=== PATIENT | female | born 1945 | race Caucasian/White ===

== ENCOUNTER 2016-10-07 07:36 | Inpatient (IN) ==
[2016-10-07] MEDS ORDERED: DUONEB NEB ONE (07:50)
[2016-10-07] MEDS ORDERED: DUONEB NEB STA (07:59)
--- NOTE | 2016-10-07 08:00 | ED.PDOC ---
General ED Provider: Dr. GENESIS MOYA JR Chief Complaint: Respiratory Complaint Stated Complaint: patient c/o soa. nh states o2 sat 85% room air[End]4 days 96.7 83 22 99% 194/88 11/30 DNR amalia vaca Time Seen by Physician: 07:59 Mode of Arrival: Ambulance Information Source: Patient, Intermediate, EMT Exam Limitations: No limitations Primary Care Provider: TORSTEN TORRES Nursing and Triage Documentation Reviewed and Agree: No Review of Systems - Review Of Systems Constitutional: Reports: Malaise Eyes: Reports: No symptoms Ears, Nose, Mouth, Throat: Reports: No symptoms Respiratory: Reports: Cough, Wheezing, Other (COPD) Cardiac: Reports: Chest pain (mid sternal chest pain-unable to characterize) GI: Reports: Diarrhea : Reports: No symptoms Musculoskeletal: Reports: No symptoms Skin: Reports: No symptoms Neurological: Reports: Cognitive dysfunction Endocrine: Reports: No symptoms Hematologic/Lymphatic: Reports: No symptoms All Other Systems: Other Past Medical History - Past Medical History Previously Healthy: Yes Endocrine: Reports: DM 2, Dyslipidemia Cardiovascular: Reports: Hypertension, Other (Edema) Respiratory: Reports: None Hematological: Reports: None Gastrointestinal: Reports: GERD, Other (IBS) Genitourinary: Reports: None Neuro/Psych: Reports: None, Other ( Neuropathy ) Musculoskeletal: Reports: None Cancer: Reports: None Last Menstrual Period: na Other Pertinent Past Medical History: Recent Falls, IBS, Edema, Neuropathy htn dm chol - Surgical History General Surgical History: Reports: Cholecystectomy (Gallbladder removed, unable to get surgical history) - Family History Family History: Reports: None - Social History Smoking Status: Former smoker Hx Substance Use: No Alcohol Screening: None Physical Exam - Physical Exam Appearance: Well-appearing, Obese Ill-appearing: Mild Pain Distress: Mild Eyes: PABLO, EOMI, Conjunctiva clear ENT: Ears normal, Nose normal, Oropharynx normal Neck: Supple Respiratory: Airway patent, Breath sounds diminished Cardiovascular: RRR, Pulses normal, No rub, No murmur Skin: Warm, Dry, Normal color (note punctate lesions purplish both shoulders r> > left appearance of punctures POA states look like fingernail lesions patietn unreliable(dementia)) Neurological: Sensation intact, Alert, Disoriented Psychiatric: Affect appropriate, Mood appropriate Interpretation - Radiology Interpretation Radiology Interpretation By: Radiologist Radiology Results: No acute changes Exam Interpreted: CXR (no right hilar pneumonia=calcified granulomatous changes) , Other (neg shoulder (rotator cuff calcification) Radiology Interpretation By: Radiologist Radiology Results: No acute changes Exam Interpreted: CT Scan (chf,cirrosis,gastritis,diverticulitis, no PE) - EKG Interpretation Time of EKG #1: 07:45 Rate: Normal Rhythm: Sinus [place]: Left ST Segment: Other (?lvh ?infmi nonacute) Physician Notification - Case Discussed Physician Notified: [email or web address] Time of Notification: 16:27 (admit) Critical Care Note - Critical Care Note Total Time (mins): 10 Course - Course Hematology/Chemistry: 10/07/16 08:20 10/07/16 08:20 Orders, Labs, Meds: Lab Review 10/07/16 10/07/16 10/07/16 07:52 08:20 09:45 WBC 11.59 H RBC 4.19 L Hgb 12.9 Hct 38.3 MCV 91.4 MCH 30.8 MCHC 33.7 RDW Coeff of Dinah 14.7 Plt Count 91 L Immature Gran % (Auto) 0.4 Neut % (Auto) 82.7 Lymph % (Auto) 8.3 L [place] % (Auto) 6.6 Eos % (Auto) 1.6 Baso % (Auto) 0.4 Immature Gran # (Auto) 0.1 Neut # 9.6 H Lymph # 1.0 [place] # 0.8 Eos # 0.2 Baso # 0.1 D-Dimer 9.88 H Puncture Site L brach O2 Saturation 90.0 L ABG pH 7.47 H ABG pCO2 38.5 ABG pO2 55.0 L* ABG HCO3 28 H ABG Total CO2 29 H ABG Base Excess 4 H Gibran Test + FiO2 % 21.0 Sodium 140 Potassium 4.2 Chloride 104 Carbon Dioxide 26 Anion Gap 14.2 BUN 22 H Creatinine 0.96 Estimated GFR (MDRD) 57.00 BUN/Creatinine Ratio 22.91 Glucose 117 H Lactic Acid 11.9 Calcium 9.6 Total Bilirubin 2.28 H AST 54 H ALT 32 Alkaline Phosphatase 390 H Total Creatine Kinase 39 Troponin I 0.0710 B-Natriuretic Peptide 803 H Total Protein 7.5 Albumin 2.8 L Globulin 4.7 Albumin/Globulin Ratio 0.60 Procalcitonin 0.18 Stl Occult Blood (IFOB) Positive Stool Occult Blood #2 No specimen received Stool Occult Blood #3 No specimen received Orders Category Date Time Status ADMIT PATIENT INPATIENT .TO [facility] [place] (MONITORED BED) ADMISSION 10/07/16 16: 28 Active ABG DRAW REQUEST Stat CARDIO 10/07/16 07:53 Completed EKG-(ED ONLY) Stat CARDIO 10/07/16 07:52 Completed EKG-(IP & OP ONLY) DAILY CARDIO 10/08/16 06:00 Ordered EKG-(IP & OP ONLY) DAILY CARDIO 10/09/16 06:00 Ordered EKG-(IP & OP ONLY) DAILY CARDIO 10/10/16 06:00 Ordered NEBULIZER TREATMENT Stat CARDIO 10/07/16 07:59 Completed ACTIVITY .BR with BRP CARE 10/07/16 16:29 Active BLOOD GLUCOSE MONITORING 0630,1100,1700,2100 CARE 10/07/16 16:30 Active CATHETER INSERTION AND CARE Q8HR CARE 10/07/16 16:29 Active GIVE HS SNACK 2100 CARE 10/07/16 16:31 Active INTAKE & OUTPUT Q8HR CARE 10/07/16 16:28 Active INTAKE & OUTPUT Q8HR CARE 10/07/16 16:29 Active NPO REMINDER: IMAGING ONCE CARE 10/07/16 09:42 Completed NPO REMINDER: IMAGING ONCE CARE 10/07/16 10:34 Active TELEMETRY MONITORING TELE CARE 10/07/16 16:29 Active VITAL SIGNS Q4HR CARE 10/07/16 16:29 Active ADA 1800 KRISSY. DIET DIETARY 10/07/16 Breakfast Ordered CARDIAC DIET DIETARY 10/07/16 Breakfast Ordered HS SNACK DIETARY 10/07/16 Dinner Ordered Bladder Scan [ED BLADDER SCAN] .ONCE EMERGENCY 10/07/16 15:17 Active ED APPLY O2 .ONCE EMERGENCY 10/07/16 07:52 Active ED ADJUNCT SOCIOLOGY PROFESSOR APPLIED .ONCE EMERGENCY 10/07/16 07:52 Active ED IV/MEDIPORT/POWERPORT .ONCE EMERGENCY 10/07/16 07:52 Active Douglas [ED CATHETER INSERTION AND CARE] .ONCE EMERGENCY 10/07/16 16:28 Active ABG Stat LAB 10/07/16 07:52 Completed AMMONIA Stat LAB 10/07/16 16:27 Received B-TYPE NATRIURETIC PEPTIDE Stat LAB 10/07/16 08:20 Completed BLOOD CULTURE Stat LAB 10/07/16 08:20 Received CBC W/ AUTO DIFF DAILY@0600 LAB 10/08/16 06:00 Ordered CBC W/ AUTO DIFF DAILY@0600 LAB 10/09/16 06:00 Ordered CBC W/ AUTO DIFF DAILY@0600 LAB 10/10/16 06:00 Ordered CBC W/ AUTO DIFF DAILY@0600 LAB 10/11/16 06:00 Ordered CBC W/ AUTO DIFF DAILY@0600 LAB 10/12/16 06:00 Ordered CBC W/ AUTO DIFF DAILY@0600 LAB 10/13/16 06:00 Ordered CBC W/ AUTO DIFF DAILY@0600 LAB 10/14/16 06:00 Ordered CBC W/ AUTO DIFF DAILY@0600 LAB 10/15/16 06:00 Ordered CBC W/ AUTO DIFF DAILY@0600 LAB 10/16/16 06:00 Ordered CBC W/ AUTO DIFF DAILY@0600 LAB 10/17/16 06:00 Ordered CBC W/ AUTO DIFF DAILY@0600 LAB 10/18/16 06:00 Ordered CBC W/ AUTO DIFF DAILY@0600 LAB 10/19/16 06:00 Ordered CBC W/ AUTO DIFF DAILY@0600 LAB 10/20/16 06:00 Ordered CBC W/ AUTO DIFF DAILY@0600 LAB 10/21/16 06:00 Ordered CBC W/ AUTO DIFF DAILY@0600 LAB 10/22/16 06:00 Ordered CBC W/ AUTO DIFF DAILY@0600 LAB 10/23/16 06:00 Ordered CBC W/ AUTO DIFF DAILY@0600 LAB 10/24/16 06:00 Ordered CBC W/ AUTO DIFF DAILY@0600 LAB 10/25/16 06:00 Ordered CBC W/ AUTO DIFF DAILY@0600 LAB 10/26/16 06:00 Ordered CBC W/ AUTO DIFF DAILY@0600 LAB 10/27/16 06:00 Ordered CBC W/ AUTO DIFF Stat LAB 10/07/16 08:20 Completed COMPREHENSIVE METABOLIC PANEL DAILY@0600 LAB 10/08/16 06:00 Ordered COMPREHENSIVE METABOLIC PANEL DAILY@0600 LAB 10/09/16 06:00 Ordered COMPREHENSIVE METABOLIC PANEL DAILY@0600 LAB 10/10/16 06:00 Ordered COMPREHENSIVE METABOLIC PANEL DAILY@0600 LAB 10/11/16 06:00 Ordered COMPREHENSIVE METABOLIC PANEL DAILY@0600 LAB 10/12/16 06:00 Ordered COMPREHENSIVE METABOLIC PANEL DAILY@0600 LAB 10/13/16 06:00 Ordered COMPREHENSIVE METABOLIC PANEL DAILY@0600 LAB 10/14/16 06:00 Ordered COMPREHENSIVE METABOLIC PANEL DAILY@0600 LAB 10/15/16 06:00 Ordered COMPREHENSIVE METABOLIC PANEL DAILY@0600 LAB 10/16/16 06:00 Ordered COMPREHENSIVE METABOLIC PANEL DAILY@0600 LAB 10/17/16 06:00 Ordered COMPREHENSIVE METABOLIC PANEL DAILY@0600 LAB 10/18/16 06:00 Ordered COMPREHENSIVE METABOLIC PANEL DAILY@0600 LAB 10/19/16 06:00 Ordered COMPREHENSIVE METABOLIC PANEL DAILY@0600 LAB 10/20/16 06:00 Ordered COMPREHENSIVE METABOLIC PANEL DAILY@0600 LAB 10/21/16 06:00 Ordered COMPREHENSIVE METABOLIC PANEL DAILY@0600 LAB 10/22/16 06:00 Ordered COMPREHENSIVE METABOLIC PANEL DAILY@0600 LAB 10/23/16 06:00 Ordered COMPREHENSIVE METABOLIC PANEL DAILY@0600 LAB 10/24/16 06:00 Ordered COMPREHENSIVE METABOLIC PANEL DAILY@0600 LAB 10/25/16 06:00 Ordered COMPREHENSIVE METABOLIC PANEL DAILY@0600 LAB 10/26/16 06:00 Ordered COMPREHENSIVE METABOLIC PANEL DAILY@0600 LAB 10/27/16 06:00 Ordered COMPREHENSIVE METABOLIC PANEL Stat LAB 10/07/16 08:20 Completed CREATINE KINASE Q8H LAB 10/07/16 22:45 Ordered CREATINE KINASE Q8H LAB 10/08/16 06:45 Ordered CREATINE KINASE Stat LAB 10/07/16 08:20 Completed D-DIMER Stat LAB 10/07/16 08:20 Completed LACTIC ACID Stat LAB 10/07/16 08:20 Completed OCCULT BLOOD, STOOL Stat LAB 10/07/16 09:45 Completed PROCALCITONIN Stat LAB 10/07/16 08:20 Completed PT WITH INR DAILY@0600 LAB 10/07/16 06:00 Ordered PT WITH INR DAILY@0600 LAB 10/08/16 06:00 Ordered PT WITH INR DAILY@0600 LAB 10/09/16 06:00 Ordered PT WITH INR DAILY@0600 LAB 10/10/16 06:00 Ordered PT WITH INR DAILY@0600 LAB 10/11/16 06:00 Ordered PT WITH INR DAILY@0600 LAB 10/12/16 06:00 Ordered PT WITH INR DAILY@0600 LAB 10/13/16 06:00 Ordered PT WITH INR DAILY@0600 LAB 10/14/16 06:00 Ordered PT WITH INR DAILY@0600 LAB 10/15/16 06:00 Ordered PT WITH INR DAILY@0600 LAB 10/16/16 06:00 Ordered PT WITH INR DAILY@0600 LAB 10/17/16 06:00 Ordered PT WITH INR DAILY@0600 LAB 10/18/16 06:00 Ordered PT WITH INR DAILY@0600 LAB 10/19/16 06:00 Ordered PT WITH INR DAILY@0600 LAB 10/20/16 06:00 Ordered PT WITH INR DAILY@0600 LAB 10/21/16 06:00 Ordered PT WITH INR DAILY@0600 LAB 10/22/16 06:00 Ordered PT WITH INR DAILY@0600 LAB 10/23/16 06:00 Ordered PT WITH INR DAILY@0600 LAB 10/24/16 06:00 Ordered PT WITH INR DAILY@0600 LAB 10/25/16 06:00 Ordered PT WITH INR DAILY@0600 LAB 10/26/16 06:00 Ordered PT WITH INR DAILY@0600 LAB 10/27/16 06:00 Ordered STOOL CULTURE Stat LAB 10/07/16 Ordered TROPONIN I Q8H LAB 10/07/16 22:45 Ordered TROPONIN I Q8H LAB 10/08/16 06:45 Ordered TROPONIN I Stat LAB 10/07/16 08:20 Completed URINALYSIS C & S IF INDICATED Stat LAB 10/07/16 16:37 Uncollected 0.9 % Sodium Chloride [Saline Flush] MEDS 10/07/16 07:52 Active 1 syr IVF PRN PRN Ceftriaxone Sodium [Rocephin] MEDS 10/07/16 10:21 Discontinued 1 gm .ROUTE .STK-MED ONE Ceftriaxone Sodium [Rocephin] 1 gm MEDS 10/07/16 09:01 Discontinued 0.9 % Sodium Chloride [Sodium Chloride] 100 ml IV ONCE Furosemide [Lasix] MEDS 10/07/16 15:15 Discontinued 40 mg IVP ONCE STA Ipratropium/Albuterol Neb [Duoneb] MEDS 10/07/16 07:50 Discontinued 1 vial NEB .STK-MED ONE Ipratropium/Albuterol Neb [Duoneb] MEDS 10/07/16 07:59 Discontinued 1 vial NEB ONCE STA Lidocaine HCl [Uro-Jet] MEDS 10/07/16 16:28 Discontinued 10 ml MUCOUSMEMB ONCE STA Methylprednisolone Sod Succ/Pf [Solu-Medrol 125 mg] MEDS 10/07/16 09:01 Discontinued 125 mg IVP ONCE STA Sodium Chloride 0.9% [Sodium Chloride] 1,000 ml MEDS 10/07/16 16:30 Active IV 75 mls/hr Sodium Chloride 0.9% [Sodium Chloride] 500 ml MEDS 10/07/16 10:38 Discontinued IV BOLUS RESUSCITATION STATUS Routine OTHERS 10/07/16 16:28 Ordered CHEST, 1V AP ONLY Stat RADS 10/07/16 07:[address] ABDOMEN/PELVIS W CONTRAST Stat RADS 10/07/16 10:[address] CHEST PE PROTOCOL Stat RADS 10/07/16 09:41 Completed HUMERUS, RIGHT 2 VIEWS Stat RADS 10/07/16 11:14 Completed Medications Generic Name Dose Route Start Last Admin Trade Name Freq PRN Reason Stop Dose Admin Sodium Chloride 1,000 mls @ 75 mls/hr 10/07/16 16:30 Sodium Chloride IV .[id number] JASON Sodium Chloride 1 syr 10/07/16 07:52 Saline Flush IVF PRN PRN To flush IV Discontinued Medications Generic Name Dose Route Start Last Admin Trade Name Freq PRN Reason Stop Dose Admin Albuterol/Ipratropium 1 vial 10/07/16 07:59 10/07/16 08:08 Duoneb NEB 10/07/16 08:00 Not Given ONCE STA Furosemide 40 mg 10/07/16 15:15 10/07/16 16:32 Lasix IVP 10/07/16 15:16 40 mg ONCE STA Administration Ceftriaxone Sodium 1 gm/ 100 mls @ 100 mls/hr 10/07/16 09:01 10/07/16 10:45 Sodium Chloride IV 10/07/16 10:00 100 mls/hr ONCE STA Administration Sodium Chloride 500 mls @ 1,000 mls/hr 10/07/16 10:38 10/07/16 11:13 Sodium Chloride IV 10/07/16 11:07 1,000 mls/hr BOLUS STA Administration Lidocaine HCl 10 ml 10/07/16 16:28 Uro-Jet MUCOUSMEMB 10/07/16 16:29 ONCE STA Methylprednisolone Sodium Succinate 125 mg 10/07/16 09:01 10/07/16 10:44 Solu-Medrol 125 Mg IVP 10/07/16 09:02 125 mg ONCE STA Administration Vital Signs: Temp Pulse Resp BP Pulse Ox 10/07/16 07:37 96.7 F L 83 22 194/88 H 99 Departure - Departure Time of Disposition: 16:35 Disposition: ADMITTED INPATIENT Discharge Problem: Hypoxia, CHF (congestive heart failure) Condition: Fair Pt referred to PMD for follow-up: No (hospitalist) Allergies/Adverse Reactions: Allergies Cephalosporins Adverse Reaction (Verified 10/07/16 07:57) phenobarbital Adverse Reaction (Verified 10/07/16 07:57) povidone-iodine Adverse Reaction (Verified 10/07/16 07:57) soap [From Betadine] Adverse Reaction (Verified 10/07/16 07:57) Home Medications: Ambulatory Orders Furosemide [Lasix Tab] 40 mg PO DAILY 01/03/15 Isosorbide Dinitrate 30 mg PO DAILY 01/03/15 Memantine HCl [Namenda Xr] 28 mg PO DAILY 01/03/15 Acetaminophen [Tylenol] 650 mg PO Q8H PRN 05/16/16 Ascorbate Calcium [Vitamin C] 500 mg PO BID 05/16/16 Carvedilol 3.125 mg PO BID 05/16/16 Dextran 70/Hypromellose/Pf [Artificial Tears Drops] 1 each OP BEDTIME 05/16/16 Esomeprazole Magnesium [Nexium] 20 mg PO DAILY 05/16/16 Ferrous Sulfate 325 mg PO BID 05/16/16 Hydrocodone/Acetaminophen [Hydrocodon-Acetaminophen 5-325] 5 mg PO TID 05/16/16 Insulin Aspart [Novolog Flexpen] 1 unit SQ DIRECTED PRN 05/16/16 Insulin Detemir [Levemir] 40 unit SUBCUT QAM 05/16/16 Liraglutide [Victoza 2-Anthony] 0.3 mg SQ DAILY 05/16/16 Loperamide HCl [Imodium] 2 mg PO DAILY PRN 05/16/16 Multivitamin with Minerals [Daily Vitamin Formula-Minerals] 1 each PO DAILY Nystatin [Nystop Powder] 1 applic TP TID 05/16/16 Pregabalin [Lyrica] 25 mg PO Q12HR 05/16/16 Sertraline HCl 25 mg PO BEDTIME 05/16/16 Spironolactone 25 mg PO BID 05/16/16 Bisacodyl [Women's Laxative] 5 mg PO DAILY PRN 10/07/16 Insulin Detemir [Levemir] 30 unit SUBCUT BEDTIME 10/07/16 Mag Hydrox/Al Hydrox/Simeth [Mylanta Susp] 30 ml PO Q3HR PRN 10/07/16 Zinc Oxide 30 gm TP BID PRN 10/07/16
[2016-10-07 08:02] LABS: ABG BASE EXCESS 4 (-2.0-2.0); ABG PCO2 38.5 mmHg (35-45); ABG PH 7.47 (7.35-7.45)
[2016-10-07 08:03] LABS: ABG HCO3 28 (22.0-26.0); ABG TCO2 29 (22.0-28.0)
--- NOTE | 2016-10-07 08:50 | DI ---
EXAM: Chest one view, frontal view only. HISTORY: Chest pain. COMPARISON: 05/17/2016. FINDINGS: The heart size is enlarged. Atherosclerotic calcifications are present. There is no pul monary vascular congestion. The lungs are clear save for calcified granulomatous changes. No pleur al effusion or pneumothorax is seen. No acute osseous abnormality is identified. Since the prior s tudy, there has been no significant interval change. IMPRESSION: No acute cardiopulmonary process.
[2016-10-07 08:53] LABS: BASOPHILS # (AUTO) 0.1 K/uL (0-0.2); BASOPHILS % (AUTO) 0.4 % (0.0-3.0); EOSINOPHILS # (AUTO) 0.2 K/ul (0.0-0.7); EOSINOPHILS % (AUTO) 1.6 % (0.0-7.0); HEMATOCRIT 38.3 % (37.0-47.0); HEMOGLOBIN 12.9 g/dl (12.0-16.0); IMMATURE GRANULOCYTE % (AUTO) 0.4 % (0.0-5.0); LYMPHOCYTES % (AUTO) 8.3 (10.0-50.0); MEAN CORPUSCULAR HEMOGLOBIN 30.8 pg (27.0-31.0); MEAN CORPUSCULAR HGB CONC 33.7 (31.8-35.4); MEAN CORPUSCULAR VOLUME 91.4 fl (81.0-99.0); MONOCYTES # (AUTO) 0.8 K/uL (0.4-2.0); MONOCYTES % (AUTO) 6.6 (0-10); NEUTROPHILS # (AUTO) 9.6 K/ul (2.0-6.9); NEUTROPHILS % (AUTO) 82.7; PLATELET COUNT 91 10^3/uL (140-440); RED BLOOD COUNT 4.19 10^6/ul (4.20-5.40); WHITE BLOOD COUNT 11.59 K/ul (4.6-10.2)
[2016-10-07 09:01] LABS: ALBUMIN 2.8 g/dL (3.4-5.0); ALBUMIN/GLOBULIN RATIO 0.6; ANION GAP 14.2; BILIRUBIN,TOTAL 2.28 mg/dL (0.00-1.20); BUN/CREATININE RATIO 22.91; CALCIUM 9.6 mg/dL (8.2-10.2); CREATININE 0.96 mg/dL (0.60-1.30); POTASSIUM 4.2 mmol/L (3.5-5.10); TOTAL PROTEIN 7.5 g/dL (5.8-8.1); TROPONIN I 0.071 ng/ml (0.0000-0.4000)
[2016-10-07] MEDS ORDERED: ROCEPHIN 1 GM in SODIUM CHLORIDE 100 ML IV STA (09:01)
[2016-10-07] MEDS ORDERED: SOLU-MEDROL 125 MG IVP STA (09:01)
[2016-10-07 10:12] LABS: OCCULT BLOOD INTERNAL QC 1 INTERNAL QC VALID; OCCULT BLOOD SAMPLE 1 POSITIVE (NEGATIVE)
[2016-10-07 10:14] LABS: OCCULT BLOOD INTERNAL QC 2 INTERNAL QC VALID; OCCULT BLOOD INTERNAL QC 3 INTERNAL QC VALID; OCCULT BLOOD SAMPLE 2 NO SPECIMEN RECEIVED (NEGATIVE); OCCULT BLOOD SAMPLE 3 NO SPECIMEN RECEIVED (NEGATIVE)
[2016-10-07] MEDS ORDERED: ROCEPHIN ONE (10:21)
[2016-10-07] MEDS ORDERED: SODIUM CHLORIDE 500 ML IV STA (10:38)
--- NOTE | 2016-10-07 11:42 | DI ---
EXAM: Radiographs, right humerus HISTORY: Right arm tenderness. COMPARISON: None available. TECHNIQUE: Two views. FINDINGS: Bone mineralization is decreased. There is no fracture or dislocation. Moderate degener ative change of the shoulder noted along with calcific tendinosis of the rotator cuff. Elbow joint appears intact. No focal soft tissue abnormality is seen. IMPRESSION: No fracture or dislocation.
--- NOTE | 2016-10-07 14:22 | CT ---
EXAM: CTA CHEST (PE PROTOCOL) HISTORY: Positive D-dimer, shortness of breath TECHNIQUE: CTA with intravenous contrast. 3-mm axial sections. Coronal and sagittal reformations. 3-D reconstructions. 100 ml Visipaque [id number] FINDINGS: Comparison may be made to 05/17/2016. No pulmonary arterial filling defect is identified. Mild cardiomegaly. Enlarged thyroid gland. Mo derately severe atherosclerotic disease of the aorta. Heavy calcification at the base of the brachi ocephalic artery. Small bilateral pleural effusions are present. Mild pulmonary vascular congestion and probable subt le central interstitial edema. Motion artifact limits image detail. There are mild consolidations adjacent to the pleural fluid, presumably representing atelectasis. No pneumothorax. The bones reveal no acute abnormality. Incidental note of hepatic cirrhosis and mild splenomegaly wi th upper abdominal torturuous vessels probably indicating a degree of portal venous hypertension. IMPRESSION: 1. No pulmonary arterial thromboembolism. 2. Cardiomegaly with pulmonary vascular congestion and mild central interstitial edema. Small bila teral pleural effusions with adjacent atelectasis. 3. Relatively severe atherosclerotic disease. 4. Hepatic cirrhosis with splenomegaly and other signs of portal venous hypertension. 5. Enlarged thyroid gland.
--- NOTE | 2016-10-07 14:31 | CT ---
EXAM: CT of the abdomen pelvis with IV contrast. HISTORY: Abdominal pain COMPARISON: 05/21/2016, 05/16/2016 TECHNIQUE: CT of the abdomen and pelvis with IV contrast FINDINGS: There are small bilateral pleural effusions with mild adjacent atelectasis. There is mild bibasilar interlobular septal thickening. The heart is enlarged. There is calcification of the mitral valve annulus. Patient motion mildly limits evaluation. The liver contour is nodular. The spleen measures 12.3 cm craniocaudal. The gallbladder has been removed. There is stable left renal gland thickening. The r ight adrenal is unremarkable. A 10 mm left renal inferior pole exophytic lesion is seen which is morris ited assessment due to the patient motion. This is likely not a simple cyst. There are a few areas of cortical thinning/scarring of the right kidney. The pancreas is grossly unremarkable. Multiple e sophageal and perigastric varices are present. Numerous prominent varices are seen extending to the left renal vein. There is gastric wall thickening, likely more than just underdistension. No abnormal small bowel dil ation is identified. There is wall thickening of the sigmoid colon which is not well distended. The re is minimal adjacent fat stranding. The appendix is not identified. No pericecal inflammatory jefry nges are seen. There is extensive calcified atherosclerotic plaque of the aorta as branches. No free air is seen. There is mild free fluid adjacent to the liver. There is a small fat-containing left inguinal petty ia. The bladder is underdistended and there is wall thickening. Multiple lower pelvic surgical clips are again seen. There is severe multilevel degenerative disc disease and facet arthropathy. IMPRESSION: Cirrhosis with findings of portal hypertension. Gastric wall thickening, suggestive of gastritis. Diverticulosis. Wall thickening of a segment of the sigmoid colon which is not well distended with minimal adjacent fat stranding. Mild diverticulitis is difficult to exclude. Mild ascites. Bladder wall thickening which could be secondary to the underdistension. Extensive atherosclerosis. Small bilateral pleural effusions, right greater than left with adjacent mild atelectasis. Mild bilateral lower lobe interlobular septal thickening which is nonspecific and often seen with in terstitial edema. Cardiomegaly. Left renal inferior pole lesion, not well evaluated in this exam and likely not a simple cyst. Foll ow-up ultrasound is recommended as a solid lesion is not excluded. Motion degraded exam.
[2016-10-07] MEDS ORDERED: LASIX IVP STA (15:15)
[2016-10-07] MEDS ORDERED: URO-JET MUCOUSMEMB STA (16:28)
[2016-10-07] MEDS ORDERED: SODIUM CHLORIDE 1,000 ML IV SCH (16:30)
[2016-10-07 16:50] LABS: BILIRUBIN,URINE Negative (NEGATIVE); KETONES,URINE 1+ (NEGATIVE); LEUKOCYTE ESTERASE ,URINE Negative (NEGATIVE); NITRITE,URINE Negative (NEGATIVE); PH,URINE 5.5 (5-9); PROTEIN,URINE 3+ (NEGATIVE); URINE, BLOOD 2+ (NEGATIVE)
[2016-10-07 16:54] LABS: ADD URINE MICROSCOPIC YES
[2016-10-07 16:55] LABS: BACTERIA,URINE TRACE (NOT PRESENT)
[2016-10-07] MEDS: DUONEB NEB SCH ×2 (19:25→23:06)
[2016-10-07 21:25] VITALS: BMI 35.1
[2016-10-07] MEDS: LASIX IVP SCH (21:28)
[2016-10-07] MEDS: PROTONIX IV IVP SCH (21:40)
[2016-10-07 23:06] LABS: TROPONIN I 0.112 ng/ml (0.0000-0.4000)
[2016-10-08] MEDS: DUONEB NEB SCH ×4 (04:53→23:04)
[2016-10-08] MEDS: LASIX IVP SCH (05:49)
[2016-10-08 08:04] LABS: BASOPHILS % (AUTO) 0.2 % (0.0-3.0); EOSINOPHILS % (AUTO) 0.2 % (0.0-7.0); HEMATOCRIT 37.1 % (37.0-47.0); HEMOGLOBIN 12.5 g/dl (12.0-16.0); IMMATURE GRANULOCYTE % (AUTO) 1.4 % (0.0-5.0); LYMPHOCYTES # (AUTO) 0.9 K/uL (0.60-3.4); LYMPHOCYTES % (AUTO) 7.2 (10.0-50.0); MEAN CORPUSCULAR HEMOGLOBIN 30.6 pg (27.0-31.0); MEAN CORPUSCULAR HGB CONC 33.7 (31.8-35.4); MEAN CORPUSCULAR VOLUME 90.7 fl (81.0-99.0); MONOCYTES # (AUTO) 0.9 K/uL (0.4-2.0); MONOCYTES % (AUTO) 7.6 (0-10); NEUTROPHILS # (AUTO) 9.9 K/ul (2.0-6.9); NEUTROPHILS % (AUTO) 83.4; PLATELET COUNT 118 10^3/uL (140-440); RED BLOOD COUNT 4.09 10^6/ul (4.20-5.40); WHITE BLOOD COUNT 11.92 K/ul (4.6-10.2)
[2016-10-08 08:11] LABS: PROTHROMBIN TIME 11.8 SEC (9.3-11.0)
[2016-10-08 08:38] LABS: ALBUMIN 2.5 g/dL (3.4-5.0); ALBUMIN/GLOBULIN RATIO 0.56; ANION GAP 14.4; BILIRUBIN,TOTAL 1.78 mg/dL (0.00-1.20); BUN/CREATININE RATIO 28.42; CALCIUM 9.4 mg/dL (8.2-10.2); CREATININE 0.95 mg/dL (0.60-1.30); POTASSIUM 3.4 mmol/L (3.5-5.10); TROPONIN I 0.098 ng/ml (0.0000-0.4000)
[2016-10-08] MEDS: PROTONIX IV IVP SCH ×2 (09:28→20:45)
[2016-10-08] MEDS ORDERED: CALMOSEPTINE OINTMENT TP ONE (13:46)
[2016-10-09] MEDS: CALMOSEPTINE OINTMENT TP PRN ×3 (02:00→21:16)
[2016-10-09 04:45] LABS: BASOPHILS % (AUTO) 0.2 % (0.0-3.0); EOSINOPHILS # (AUTO) 0.2 K/ul (0.0-0.7); EOSINOPHILS % (AUTO) 2.7 % (0.0-7.0); HEMATOCRIT 36.5 % (37.0-47.0); HEMOGLOBIN 12.2 g/dl (12.0-16.0); IMMATURE GRANULOCYTE % (AUTO) 0.3 % (0.0-5.0); LYMPHOCYTES # (AUTO) 0.9 K/uL (0.60-3.4); LYMPHOCYTES % (AUTO) 10.2 (10.0-50.0); MEAN CORPUSCULAR HEMOGLOBIN 30.5 pg (27.0-31.0); MEAN CORPUSCULAR HGB CONC 33.4 (31.8-35.4); MEAN CORPUSCULAR VOLUME 91.3 fl (81.0-99.0); MONOCYTES # (AUTO) 0.7 K/uL (0.4-2.0); MONOCYTES % (AUTO) 8.3 (0-10); NEUTROPHILS # (AUTO) 6.9 K/ul (2.0-6.9); NEUTROPHILS % (AUTO) 78.3; PLATELET COUNT 103 10^3/uL (140-440); WHITE BLOOD COUNT 8.79 K/ul (4.6-10.2)
[2016-10-09 04:55] LABS: PROTHROMBIN TIME 11.5 SEC (9.3-11.0)
[2016-10-09] MEDS: DUONEB NEB SCH ×4 (05:06→23:09)
[2016-10-09 05:13] LABS: ALBUMIN 2.3 g/dL (3.4-5.0); ALBUMIN/GLOBULIN RATIO 0.55; ANION GAP 10.3; BILIRUBIN,TOTAL 1.48 mg/dL (0.00-1.20); BUN/CREATININE RATIO 31.03; CALCIUM 8.8 mg/dL (8.2-10.2); CREATININE 0.87 mg/dL (0.60-1.30); POTASSIUM 3.3 mmol/L (3.5-5.10); TOTAL PROTEIN 6.5 g/dL (5.8-8.1)
[2016-10-09] MEDS: LASIX IVP SCH (05:31)
[2016-10-09] MEDS ORDERED: IMODIUM PO PRN (07:45)
[2016-10-09] MEDS ORDERED: MYLANTA SUSP PO PRN (07:45)
[2016-10-09] MEDS ORDERED: TYLENOL PO PRN (07:45)
[2016-10-09] MEDS ORDERED: DULCOLAX PO PRN (07:45)
[2016-10-09] MEDS ORDERED: SORBITRATE PO SCH (09:00)
[2016-10-09] MEDS ORDERED: NON-FORMULARY MEDICATION (Ascorbate Calcium [Vitamin C] 500 MG) PO SCH ×22 (09:00)
[2016-10-09] MEDS ORDERED: NON-FORMULARY MEDICATION (Isosorbide Dinitrate [Isosorbide Dinitrate] 30 MG) PO SCH ×22 (09:00)
[2016-10-09] MEDS ORDERED: NON-FORMULARY MEDICATION (Pregabalin 25 MG) PO SCH (09:00)
[2016-10-09] MEDS ORDERED: [UNRECOGNIZED DRUG - OTHER] PO SCH (09:00)
[2016-10-09] MEDS ORDERED: MULTIVITAMIN WITH MINERALS PO SCH (09:00)
[2016-10-09] MEDS ORDERED: NON-FORMULARY MEDICATION (Ferrous Sulfate [Ferrous Sulfate] 325 MG) PO SCH ×22 (09:00)
[2016-10-09] MEDS ORDERED: NON-FORMULARY MEDICATION (Memantine Hcl [Namenda Xr] 28 MG) PO SCH (09:00)
[2016-10-09] MEDS: PROTONIX IV IVP SCH ×2 (09:46→21:13)
[2016-10-09] MEDS: LEVEMIR SUBCUT SCH ×2 (09:46→21:15)
[2016-10-09] MEDS: NORCO 5-325 PO SCH ×3 (09:46→20:26)
[2016-10-09] MEDS: MULTIVITAMIN PO SCH (09:47)
[2016-10-09] MEDS: FERROUS SULFATE PO SCH ×2 (09:47→20:24)
[2016-10-09] MEDS: VITAMIN C PO SCH ×2 (09:47→20:27)
[2016-10-09] MEDS: ALDACTONE PO SCH ×2 (09:48→20:25)
[2016-10-09] MEDS: COREG PO SCH ×2 (09:48→20:25)
[2016-10-09] MEDS: NYSTOP POWDER TP SCH ×3 (09:48→21:17)
[2016-10-09] MEDS: NAMENDA PO SCH ×2 (10:00→20:27)
[2016-10-09] MEDS: HUMALOG SUBCUT SCH ×3 (12:22→21:14)
[2016-10-09] MEDS: LYRICA PO SCH (12:43)
[2016-10-09] MEDS: ZOLOFT PO SCH (20:26)
[2016-10-09] MEDS: ARTIFICIAL TEARS OPTH SOL OP SCH (20:31)
[2016-10-09] MEDS ORDERED: SERTRALINE HCL 25 MG PO SCH (21:00)
[2016-10-09] MEDS ORDERED: HYPROMELLOSE OP SCH (21:00)
[2016-10-09] MEDS ORDERED: DEXTRAN OP SCH (21:00)
[2016-10-10 04:55] LABS: BASOPHILS % (AUTO) 0.5 % (0.0-3.0); EOSINOPHILS # (AUTO) 0.6 K/ul (0.0-0.7); EOSINOPHILS % (AUTO) 7.7 % (0.0-7.0); HEMATOCRIT 35.2 % (37.0-47.0); HEMOGLOBIN 11.8 g/dl (12.0-16.0); IMMATURE GRANULOCYTE % (AUTO) 0.6 % (0.0-5.0); LYMPHOCYTES # (AUTO) 1.3 K/uL (0.60-3.4); LYMPHOCYTES % (AUTO) 15.4 (10.0-50.0); MEAN CORPUSCULAR HGB CONC 33.5 (31.8-35.4); MEAN CORPUSCULAR VOLUME 92.4 fl (81.0-99.0); MONOCYTES # (AUTO) 0.8 K/uL (0.4-2.0); MONOCYTES % (AUTO) 9.3 (0-10); NEUTROPHILS # (AUTO) 5.5 K/ul (2.0-6.9); NEUTROPHILS % (AUTO) 66.5; PLATELET COUNT 119 10^3/uL (140-440); RED BLOOD COUNT 3.81 10^6/ul (4.20-5.40); WHITE BLOOD COUNT 8.31 K/ul (4.6-10.2)
[2016-10-10] MEDS: DUONEB NEB SCH ×4 (05:00→23:19)
[2016-10-10 05:03] LABS: PROTHROMBIN TIME 11.6 SEC (9.3-11.0)
[2016-10-10 05:12] LABS: ALBUMIN 2.2 g/dL (3.4-5.0); ALBUMIN/GLOBULIN RATIO 0.56; ANION GAP 12.4; BILIRUBIN,TOTAL 1.17 mg/dL (0.00-1.20); BUN/CREATININE RATIO 29.52; CALCIUM 8.5 mg/dL (8.2-10.2); CREATININE 1.05 mg/dL (0.60-1.30); POTASSIUM 4.4 mmol/L (3.5-5.10); TOTAL PROTEIN 6.1 g/dL (5.8-8.1)
[2016-10-10] MEDS: LASIX IVP SCH (05:31)
[2016-10-10] MEDS: HUMALOG SUBCUT SCH ×4 (05:36→21:33)
[2016-10-10] MEDS ORDERED: XOPENEX 1.25 MG NEB SCH (07:30)
[2016-10-10] MEDS ORDERED: K-DUR PO SCH (09:00)
[2016-10-10] MEDS ORDERED: LYRICA PO SCH (09:00)
[2016-10-10] MEDS: LEVEMIR SUBCUT SCH ×2 (09:48→21:39)
[2016-10-10] MEDS: SORBITRATE PO SCH (09:49)
[2016-10-10] MEDS: LYRICA PO SCH (09:50)
[2016-10-10] MEDS: VITAMIN C PO SCH ×2 (09:50→21:28)
[2016-10-10] MEDS: MULTIVITAMIN PO SCH (09:50)
[2016-10-10] MEDS: NORCO 5-325 PO SCH ×3 (09:50→21:31)
[2016-10-10] MEDS: NAMENDA PO SCH ×2 (09:50→21:31)
[2016-10-10] MEDS: K-DUR PO SCH (09:51)
[2016-10-10] MEDS: ALDACTONE PO SCH ×2 (09:51→21:28)
[2016-10-10] MEDS: PROTONIX IV IVP SCH ×2 (09:52→21:33)
[2016-10-10] MEDS: FERROUS SULFATE PO SCH ×2 (09:52→21:31)
[2016-10-10] MEDS: COREG PO SCH ×2 (09:52→21:30)
[2016-10-10] MEDS: NYSTOP POWDER TP SCH ×3 (09:52→21:32)
[2016-10-10] MEDS: CALMOSEPTINE OINTMENT TP PRN (09:53)
--- NOTE | 2016-10-10 10:52 | PCM.PROG ---
Attending Provider: ATTENDING PROVIDER: Dr. ANTONETTE TOMPKINS DATE OF SERVICE: 10/10/16 SUBJECTIVE: This 71 year old WHITE/ F was hospitalized 10/07/16. The patient states she had a better night. She has a good urine output. She had three bowel movements yesterday but none through the night. Less shortness of breath. Still complains of pain in the belly otherwise feeling better. REVIEW OF SYSTEMS: CONSTITUTIONAL: No fever, no chills. ENDOCRINE: No weight loss or weight gain. HEENT: No sinus drainage, no sore throat. CVS: No angina symptoms. No CHF symptoms. No palpitations. No atypical chest pain for CAD. Less shortness of breath. RESPIRATORY: No cough, no hemoptysis. GI: No melena. Abdominal discomfort. No nausea, no vomiting. : No hematuria. No polyuria. SKIN: No rash. No wounds. MUSCULOSKELETAL: No pain. PROFILER OPERATOR: No blackout, no dizziness. No headache. No double vision. PSYCHIATRIC: Not anxious; no depression. No suicidal thoughts. No homicidal thoughts. PHYSICAL EXAMINATION: GENERAL: Lying in bed in no distress. VITAL SIGNS: Temperature 97.8 F, Pulse 79, Respiratory Rate 20, BP 99/69, Pulse Ox 99% HEENT: Normocephalic, atraumatic. Mucosa is dry, pallor positive. NECK: No JVP, no carotid bruit. No lymphadenopathy. CARDIAC: S1, S2, no S3. systolic murmur. LUNGS: Decreased with some basilar crackles. ABDOMEN: Abdominal discomfort all over. Bowel sounds active. No rigidity, guarding or CVA tenderness. EXTREMITIES: No clubbing, cyanosis or edema. NEUROLOGIC: Awake, alert and oriented x3. LYMPHATIC: No palpable lymph nodes SKIN: Not dry. Intact. MUSCULOSKELETAL: No joint swelling. LAB REVIEW: 10/10/16 04:49 10/10/16 04:49 10/10/16 04:49: WBC 8.31, RBC 3.81 L, Hgb 11.8 L, Hct 35.2 L, MCV 92.4, MCH 31.0 , MCHC 33.5, RDW Coeff of Dinah 14.2, Plt Count 119 L, Immature Gran % (Auto) 0.6 , Neut % (Auto) 66.5, Lymph % (Auto) 15.4, [place] % (Auto) 9.3, Eos % (Auto) 7.7 H , Baso % (Auto) 0.5, Immature Gran # (Auto) 0.1, Neut # 5.5, Lymph # 1.3, [place] # 0.8, Eos # 0.6, Baso # 0.0, PT 11.6 H, INR 1.13, Sodium 138, Potassium 4.4, Chloride 104, Carbon Dioxide 26, Anion Gap 12.4, BUN 31 H, Creatinine 1.05, Estimated GFR (MDRD) 52.00, BUN/Creatinine Ratio 29.52, Glucose 90, Calcium 8.5 , Total Bilirubin 1.17, AST 55 H, ALT 35, Alkaline Phosphatase 287 H, Total Protein 6.1, Albumin 2.2 L, Globulin 3.9, Albumin/Globulin Ratio 0.56 ASSESSMENT: 1. Status post acute respiratory failure secondary to acute on chronic heart failure and fluid overload 2. Hypertensive urgency resolved 3. Gastritis 4. Alcohol hepatic cirrhosis, end-stage 5. History of angina 6. Hypertension 7. Dyslipidemia 8. Diabetes mellitus 9. GERD PLAN: 1. Isosorbide 15 mg daily 2. Continue breathing treatment 3. I & O's Plan and coordination of the patient's care discussed in the presence of Secretary Book Keeper and nurse. CONDITION: Stable SCRIBED BY: VAHID TEAGUE Organic Lab Worker scribed while in presence of service performed by Dr. ANTONETTE TOMPKINS on 10/10/16 ([id number])
--- NOTE | 2016-10-10 13:29 | HP ---
DATE OF SERVICE: 10/07/16 CHIEF COMPLAINT: Shortness of breath and abdominal pain. HISTORY OF PRESENT ILLNESS: This is a 71-year-old female who is a [facility] resident, has been brought up by the ambulance for worsening shortness of breath and abdominal pain. The patient is evaluated by Dr. He in the emergency room. White count 11.59, D. dimer elevated 9.88. CT angiogram was done which was negative for pulmonary embolism but was showing pulmonary vascular congestion and CHF. ABGs were done which showed pH 7.47, pc02 38.5, p02 55.0. Glucose 117. Total bilirubin 2.28. AST 54, alkaline phosphatase 319. BNP 803. Procalcitonin/lactic acid negative. CT of the abdomen and pelvis showed cirrhosis with portal hypertension, gastric wall thickening suggestive of gastritis. Diverticulosis, ascites mild. Extensive atherosclerotic vascular disease, bilateral pleural effusion right greater than left with atelectasis. At that time, the patient was admitted to the hospital for acute on chronic heart failure from fluid overload, gastritis with hepatic cirrhosis, abdominal pain to rule out hepatic cirrhosis, abdominal pain secondary to gastritis with history of GI bleed, Alzheimer's dementia, CVA. REVIEW OF SYSTEMS: CONSTITUTIONAL: Weakness, tiredness. No fever, no chills. HEENT: Normal. ENDOCRINE: No weight gain; no weight loss. CVS: No chest pain. No PND, no orthopnea. Shortness of breath. RESPIRATORY: No cough, no congestion. No hemoptysis. GI: No nausea, no vomiting. Abdominal pain. No melena. : No hematuria. No polyuria. MUSCULOSKELETAL: No joint swelling. PSYCHIATRIC: Not anxious. No depression. No suicidal thoughts. No homicidal thoughts. SKIN: Intact, no open lesions. PAST MEDICAL HISTORY: Dyslipidemia Hypertension DVT Alzheimer's dementia CVA History of pneumonia Rheumatoid arthritis History of alcohol related cirrhosis PAST SURGICAL HISTORY: Appendectomy Cholecystectomy Cataracts Ascites End-stage liver disease PERSONAL HISTORY: Nicotine use; [facility]. FAMILY HISTORY: Not significant. MEDICATIONS: (HOME) Isosorbide Lasix Namenda Artificial Tears Vitamin C Coreg Nystatin Tylenol Lopressor Loperamide Levemir Sertraline Spironolactone Lyrica Ferrous Sulfate NovoLog Hydrocodone Liraglutide Esomeprazole Bisacodyl Magnesium Hydrox ALLERGIES: CEPHALOSPORINS, PHENOBARBITOL, PROVIDONE-IODINE AND SOAP PHYSICAL EXAMINATION: V/S: BP 194/88, respiratory rate 22, heart rate 83, temperature 96.7. Saturation 99 on 2L. GENERAL: Jaundiced appearing lady lying in bed in mild distress from abdominal pain. HEENT: Atraumatic, normocephalic. Mucosa dry. Pallor positive. NECK: Supple. No JVD, no bruit. No lymphadenopathy. No thyromegaly. HEART: S1, S2 normal. No murmur. No cyanosis or clubbing. No ascites. LUNGS: Decreased basilar crackles with some wheezing. No rales or rhonchi. ABDOMEN: Epigastric tenderness present. Bowel sounds are active. No CVA tenderness. No rigidity or guarding. EXTREMITIES: 1+ edema. No cyanosis, clubbing. MUSCULOSKELETAL: Normal joints, no swelling. NEUROLOGIC: The patient is awake, alert. SKIN: Intact; no open lesions. LYMPHATIC: No lymph nodes palpable. LABS: Sodium 140, potassium 4.2, chloride 104, bicarb 26, BUN 22, creatinine 0.96. White count 11.59, hemoglobin 12.9, hematocrit 38.3, platelet count 91. ASSESSMENT: 1. ACUTE ON CHRONIC HEART FAILURE 2. ATELECTASIS VS PNEUMONIA 3. GASTRITIS 4. LIVER CIRRHOSIS 5. JAUNDICE 6. ALZHEIMER'S DEMENTIA 7. CAD 8. CHF PLAN: 1. Admit the patient to the regular floor 2. CBC/CMP today and daily 3. Cardiac enzymes and troponin 4. Rocephin 1 gm 5. Lasix 40 mg IV daily 6. Duonebs 7. Protonix 8. Carafate 9. Daily I & O's 10. Continue home medications 11. Will follow with the patient in daily rounds TIME SPENT: More than 55 minutes today MTDD
[2016-10-10] MEDS ORDERED: SODIUM CHLORIDE 250 ML IV ONE ×2 (15:45)
[2016-10-10] MEDS ORDERED: COREG ONE (21:14)
[2016-10-10] MEDS: ZOLOFT PO SCH (21:28)
[2016-10-10] MEDS: ARTIFICIAL TEARS OPTH SOL OP SCH (21:32)
[2016-10-11] MEDS: DUONEB NEB SCH ×4 (04:58→23:05)
[2016-10-11 05:17] LABS: BASOPHILS # (AUTO) 0.1 K/uL (0-0.2); BASOPHILS % (AUTO) 0.7 % (0.0-3.0); EOSINOPHILS # (AUTO) 0.6 K/ul (0.0-0.7); EOSINOPHILS % (AUTO) 6.5 % (0.0-7.0); HEMOGLOBIN 11.5 g/dl (12.0-16.0); IMMATURE GRANULOCYTE % (AUTO) 0.7 % (0.0-5.0); LYMPHOCYTES # (AUTO) 1.3 K/uL (0.60-3.4); LYMPHOCYTES % (AUTO) 13.9 (10.0-50.0); MEAN CORPUSCULAR HEMOGLOBIN 30.7 pg (27.0-31.0); MEAN CORPUSCULAR HGB CONC 33.8 (31.8-35.4); MEAN CORPUSCULAR VOLUME 90.7 fl (81.0-99.0); MONOCYTES # (AUTO) 0.8 K/uL (0.4-2.0); MONOCYTES % (AUTO) 9.2 (0-10); NEUTROPHILS # (AUTO) 6.3 K/ul (2.0-6.9); PLATELET COUNT 120 10^3/uL (140-440); RED BLOOD COUNT 3.75 10^6/ul (4.20-5.40); WHITE BLOOD COUNT 9.12 K/ul (4.6-10.2)
[2016-10-11 05:26] LABS: PROTHROMBIN TIME 11.7 SEC (9.3-11.0)
[2016-10-11 05:33] LABS: ALBUMIN 2.2 g/dL (3.4-5.0); ALBUMIN/GLOBULIN RATIO 0.59; ANION GAP 11.3; BILIRUBIN,TOTAL 0.93 mg/dL (0.00-1.20); BUN/CREATININE RATIO 27.2; CALCIUM 8.5 mg/dL (8.2-10.2); CREATININE 1.25 mg/dL (0.60-1.30); POTASSIUM 4.3 mmol/L (3.5-5.10); TOTAL PROTEIN 5.9 g/dL (5.8-8.1)
[2016-10-11] MEDS: HUMALOG SUBCUT SCH ×4 (05:39→22:42)
[2016-10-11] MEDS: LASIX IVP SCH (05:58)
[2016-10-11] MEDS: K-DUR PO SCH (08:55)
[2016-10-11] MEDS: ALDACTONE PO SCH ×2 (08:55→22:11)
[2016-10-11] MEDS: COREG PO SCH ×2 (08:55→17:34)
[2016-10-11] MEDS: NAMENDA PO SCH ×2 (08:55→22:41)
[2016-10-11] MEDS: SORBITRATE PO SCH (08:55)
[2016-10-11] MEDS: FERROUS SULFATE PO SCH ×2 (08:55→22:41)
[2016-10-11] MEDS: MULTIVITAMIN PO SCH (08:56)
[2016-10-11] MEDS: VITAMIN C PO SCH ×2 (08:56→22:41)
[2016-10-11] MEDS: NORCO 5-325 PO SCH ×3 (08:56→22:42)
[2016-10-11] MEDS: LYRICA PO SCH (08:56)
[2016-10-11] MEDS: PROTONIX IV IVP SCH ×2 (09:00→21:15)
[2016-10-11] MEDS: LEVEMIR SUBCUT SCH ×2 (09:00→22:43)
[2016-10-11] MEDS: NYSTOP POWDER TP SCH ×3 (09:01→21:57)
--- NOTE | 2016-10-11 11:07 | PCM.PROG ---
Attending Provider: ATTENDING PROVIDER: Dr. ANTONETTE TOMPKINS DATE OF SERVICE: 10/11/16 SUBJECTIVE: This 71 year old WHITE/ F was hospitalized 10/07/16. The patient's blood pressure has improved. She still has shortness of breath. No cough. No fever. No chills. REVIEW OF SYSTEMS: CONSTITUTIONAL: No fever, no chills. ENDOCRINE: No weight loss or weight gain. HEENT: No sinus drainage, no sore throat. CVS: No angina symptoms. No CHF symptoms. No palpitations. No atypical chest pain for CAD. No shortness of breath. RESPIRATORY: No cough, no hemoptysis. GI: No melena. No abdominal pain. No nausea, no vomiting. : No hematuria. No polyuria. SKIN: No rash. No wounds. MUSCULOSKELETAL: No pain. BOX NAILER: No blackout, no dizziness. No headache. No double vision. PSYCHIATRIC: Not anxious; no depression. No suicidal thoughts. No homicidal thoughts. PHYSICAL EXAMINATION: GENERAL: Lying in bed in no distress. VITAL SIGNS: Temperature 97.1 F, Pulse 82, Respiratory Rate 20, BP 120/62, Pulse Ox 98% HEENT: Normocephalic, atraumatic. Mucosa is dry, pallor positive. NECK: No JVP, no carotid bruit. No lymphadenopathy. CARDIAC: S1, S2, no S3. Systolic murmur. LUNGS: Decreased breath sounds. Clear to auscultation. ABDOMEN: Abdominal distention present. Bowel sounds active. No rigidity, guarding or CVA tenderness. EXTREMITIES: No clubbing, cyanosis or edema. NEUROLOGIC: Awake, alert and oriented x3. LYMPHATIC: No palpable lymph nodes SKIN: Not dry. Intact. MUSCULOSKELETAL: No joint swelling. LAB REVIEW: 10/11/16 05:13 10/11/16 05:13 10/11/16 05:13: WBC 9.12, RBC 3.75 L, Hgb 11.5 L, Hct 34.0 L, MCV 90.7, MCH 30.7 , MCHC 33.8, RDW Coeff of Dinah 14.2, Plt Count 120 L, Immature Gran % (Auto) 0.7 , Neut % (Auto) 69.0, Lymph % (Auto) 13.9, Ziebach % (Auto) 9.2, Eos % (Auto) 6.5, Baso % (Auto) 0.7, Immature Gran # (Auto) 0.1, Neut # 6.3, Lymph # 1.3, Ziebach # 0.8, Eos # 0.6, Baso # 0.1, PT 11.7 H, INR 1.14, Sodium 138, Potassium 4.3, Chloride 104, Carbon Dioxide 27, Anion Gap 11.3, BUN 34 H, Creatinine 1.25, Estimated GFR (MDRD) 42.00, BUN/Creatinine Ratio 27.20, Glucose 116 H, Calcium 8.5, Total Bilirubin 0.93, AST 54 H, ALT 37, Alkaline Phosphatase 296 H, Total Protein 5.9, Albumin 2.2 L, Globulin 3.7, Albumin/Globulin Ratio 0.59 ASSESSMENT: 1. Left kidney mass per CT scan, will do Renal Ultrasound 2. Enlarged thyroid, will further evaluate 3. Status post acute respiratory failure secondary to acute on chronic heart failure and fluid overload 4. Hypertensive urgency resolved 5. Gastritis 6. Alcohol hepatic cirrhosis, end-stage 7. History of angina 8. Hypertension 9. Dyslipidemia 10. Diabetes mellitus 11. GERD PLAN: 1. Renal ultrasound 2. T4 and TSH 5. Up to chair Plan and coordination of the patient's care discussed in the presence of Laboratory Helper and nurse. CONDITION: Stable SCRIBED BY: Tara PRESSLEYist scribed while in presence of service performed by Dr. ANTONETTE TOMPKINS on 10/11/16 ([id number])
--- NOTE | 2016-10-11 11:28 | PN ---
DATE OF SERVICE: 10/08/16 SUBJECTIVE: The patient was admitted with acute and chronic heart failure and hypertensive urgency. The patient is doing better today. REVIEW OF SYSTEMS: CONSTITUTIONAL: No fever, no chills. HEENT: Normal. ENDOCRINE: No weight gain, no weight loss. CVS: No angina symptoms. No CHF symptoms. No palpitations. No atypical chest pain for CAD. Some shortness of breath. No PND, no orthopnea. RESPIRATORY: No cough, no hemoptysis. GI: No nausea, no vomiting. No abdominal pain. : No hematuria. No polyuria. MUSCULOSKELETAL:. No joint swelling. PSYCHIATRIC: Not anxious. No depression. No suicidal thoughts. No homicidal thoughts. SKIN: Intact. No rash. PHYSICAL EXAMINATION: V/S: Blood pressure 139/69, respiratory rate 20, heart rate 106 and temperature 98.8. HEENT: Normocephalic, atraumatic. Ears, eyes, nose and throat normal. Mucosa dry. NECK: Supple. No JVD, no carotid bruit. No lymphadenopathy. LUNGS: Decreased and basilar crackles. No rales or rhonchi. HEART: S1, S2 normal. No S3. No murmur, gallop or regurgitation. ABDOMEN: Soft, nontender. Bowel sounds active. No rigidity. No rebound or guarding. No CVA tenderness. EXTREMITIES: No clubbing, cyanosis. 1+ edema. MUSCULOSKELETAL: No joint swelling. NEUROLOGIC: Awake, alert, oriented times three. No focal deficit. LYMPHATIC: No lymph nodes palpable. SKIN: Intact. LABS: WBC 11.9, hgb 12.5, hct 37.1, plt count 118, Sodium 141, potassium 4, chloride 104, bicarb 26, BUN 27, creatinine 1.95 and glucose 179. ASSESSMENT: 1. Acute on chronic heart failure 2. Status post hypertensive urgency 3. Hepatic encephalopathy 4. Liver cirrhosis secondary to the alcohol 5. Thrombocytopenia 6. Coronary artery disease 7. Congestive heart failure 8. Fluid overload PLAN: 1. Continue Rocephin 2. Continue Lasix daily 3. DUO NEBS 4. Protonix twice a day 5. Daily I&O's Will follow the patient in daily rounds. TIME SPENT: More than 30 minutes MTDD
--- NOTE | 2016-10-11 15:21 | PN ---
DATE OF SERVICE: 10/09/16 SUBJECTIVE: The patient was admitted with acute congestive heart failure and hypertensive urgency. She is feeling better. REVIEW OF SYSTEMS: CONSTITUTIONAL: No fever, no chills. HEENT: Normal. ENDOCRINE: No weight gain, no weight loss. CVS: No angina symptoms. No CHF symptoms. No palpitations. No atypical chest pain for CAD. Some shortness of breath. No PND, no orthopnea. RESPIRATORY: No cough, no hemoptysis. GI: No nausea, no vomiting. No abdominal pain. : No hematuria. No polyuria. MUSCULOSKELETAL:. No joint swelling. PSYCHIATRIC: Not anxious. No depression. No suicidal thoughts. No homicidal thoughts. SKIN: Intact. No rash. PHYSICAL EXAMINATION: V/S: blood pressure 94/61, respiratory rate 18, heart rate 111 and temperature 99.2. HEENT: Normocephalic, atraumatic. Ears, eyes, nose and throat normal. Mucosa dry. NECK: Supple. No JVD, no carotid bruit. No lymphadenopathy. LUNGS: Bilateral entry is decreased with basilar crackles. No rales or rhonchi. HEART: S1, S2 normal. No S3. No murmur, gallop or regurgitation. ABDOMEN: Soft, Some discomfort. Bowel sounds active. No rigidity. No rebound or guarding. No CVA tenderness. EXTREMITIES: No clubbing, cyanosis or pedal edema. MUSCULOSKELETAL: No joint swelling. NEUROLOGIC: Awake, alert, oriented times three. No focal deficit. LYMPHATIC: No lymph nodes palpable. SKIN: Intact. LABS: WBC 8.79, hgb 12.2, hct 36.5, plt count 103, sodium 139, potassium 3.3, chloride 105, bicarb 27, BUN 27 and creatinine 0.87. ASSESSMENT: 1. Status post hypertensive urgency 2. Acute on chronic heart failure 3. Status post acute respiratory failure from the fluid overload and acute and chronic heart failure 4. History of liver cirrhosis from the alcoholism 5. CVA 6. Alzheimer's Dementia 7. History of DVT 8. GERD 9. Appendectomy 10.Cholecystectomy 11.Rheumatoid arthritis 12.Osteoarthritis PLAN: 1. Continue Rocephin 2. Daily I&O's 3. DUO NEBS 4. Protonix 40mg PO Q12 hours Will follow the patient in daily rounds. TIME SPENT: More than 30 minutes MTDD
--- NOTE | 2016-10-11 15:45 | US ---
Exam: Renal ultrasound complete History: Left renal lesion. Comparison study the contrast enhanced CT scan of the abdomen and pelv is performed on 10/07/2016. Findings: Real time ultrasound of the kidneys was performed and reportedly was technically difficul t to accomplish due to the patient's body habitus. Comparison is made to the contrast enhanced CT s can of the abdomen and pelvis performed on 10/07/2016. The right kidney is measured at 9.8 cm in length by 4.9 cm in AP diameter by 4.4 cm in width and dem onstrates a mild increase in echotexture of the kidney. There is no discrete solid or cystic right renal mass, discrete sizable renal calculus, evidence of hydronephrosis nor abnormal perinephric flu id collection. The left kidney was measured at approximately 9.7 cm in length by 4.4 cm in AP diameter by 5.3 cm in width and demonstrates a somewhat lobulated configuration as can also be appreciated on the recent CT scan of the abdomen and pelvis. There is a solid appearing mixed echotexture mass measuring 2.0 x 2.0 x 2.2 cm seen arising from the superior pole region of the left kidney. It is of note the lef t kidney is malrotated on its axis best appreciated on the CT scan. There is also suggestion of a c omplex mixed echotexture 1.4 x 1.2 x 1.2 cm mass seen arising from the inferior pole region of the l eft kidney which likely correlates with the CT scan abnormality that was described. This demonstrat ed a small amount of vascularity. There is no evidence of left-sided hydronephrosis. The bladder in the distended state was measured at approximately 8.0 cm length by 4.5 cm and AP dime nsions by 9.0 cm in width for a bladder volume of 168 ml without a discrete bladder wall mass nor bl adder calculus identified. Impression: Two concerning left renal abnormalities were identified. One seen in relationship to t he superior pole is thought to be a solid mass measured at approximately 2.2 x 2.0 x 2.0 cm. There is a complex 1.4 x 1.2 x 1.2 cm mass thought to correlate with the CT findings described on 10/08/19 17. Possibility of malignant origin of either or both of these lesions cannot be excluded. Suggest consultation with an urologic surgeon for further assessment and workup of these findings. Mildly echogenic appearing right kidney. Results were faxed to the [facility] Imaging Department at approximately 1540 hours on 10/11/2016.
[2016-10-11] MEDS ORDERED: ZOFRAN 4 MG/2 ML IVP STA (20:59)
[2016-10-11 21:39] VITALS: TEMP 98.3
[2016-10-11] MEDS: ARTIFICIAL TEARS OPTH SOL OP SCH (21:58)
[2016-10-11] MEDS: ZOLOFT PO SCH (22:11)
[2016-10-12 04:57] LABS: BASOPHILS # (AUTO) 0.1 K/uL (0-0.2); BASOPHILS % (AUTO) 0.4 % (0.0-3.0); EOSINOPHILS # (AUTO) 0.2 K/ul (0.0-0.7); EOSINOPHILS % (AUTO) 1.8 % (0.0-7.0); HEMATOCRIT 38.2 % (37.0-47.0); IMMATURE GRANULOCYTE % (AUTO) 0.6 % (0.0-5.0); LYMPHOCYTES # (AUTO) 0.7 K/uL (0.60-3.4); LYMPHOCYTES % (AUTO) 5.3 (10.0-50.0); MEAN CORPUSCULAR HEMOGLOBIN 31.3 pg (27.0-31.0); MONOCYTES # (AUTO) 0.6 K/uL (0.4-2.0); NEUTROPHILS # (AUTO) 10.9 K/ul (2.0-6.9); NEUTROPHILS % (AUTO) 86.9; PLATELET COUNT 138 10^3/uL (140-440); RED BLOOD COUNT 4.15 10^6/ul (4.20-5.40); WHITE BLOOD COUNT 12.56 K/ul (4.6-10.2)
[2016-10-12 05:06] LABS: PROTHROMBIN TIME 11.7 SEC (9.3-11.0)
[2016-10-12] MEDS: DUONEB NEB SCH ×2 (05:07→11:08)
[2016-10-12 05:15] LABS: ALBUMIN 2.4 g/dL (3.4-5.0); ALBUMIN/GLOBULIN RATIO 0.6; ANION GAP 14.8; BILIRUBIN,TOTAL 1.83 mg/dL (0.00-1.20); BUN/CREATININE RATIO 29.32; CALCIUM 8.3 mg/dL (8.2-10.2); CREATININE 1.33 mg/dL (0.60-1.30); POTASSIUM 4.8 mmol/L (3.5-5.10); TOTAL PROTEIN 6.4 g/dL (5.8-8.1)
[2016-10-12] MEDS: HUMALOG SUBCUT SCH ×2 (05:46→10:53)
[2016-10-12] MEDS: LASIX IVP SCH (05:53)
[2016-10-12 05:56] VITALS: BP 130/59
[2016-10-12] MEDS: PROTONIX IV IVP SCH (08:29)
[2016-10-12] MEDS: ALDACTONE PO SCH (08:54)
[2016-10-12] MEDS: VITAMIN C PO SCH (08:54)
[2016-10-12] MEDS: NORCO 5-325 PO SCH (08:54)
[2016-10-12] MEDS: K-DUR PO SCH (08:54)
[2016-10-12] MEDS: FERROUS SULFATE PO SCH (08:54)
[2016-10-12] MEDS: MULTIVITAMIN PO SCH (08:54)
[2016-10-12] MEDS: NAMENDA PO SCH (08:54)
[2016-10-12] MEDS: COREG PO SCH (08:55)
[2016-10-12] MEDS: LEVEMIR SUBCUT SCH (08:55)
[2016-10-12] MEDS: SORBITRATE PO SCH (08:55)
[2016-10-12] MEDS: LYRICA PO SCH (08:55)
[2016-10-12] MEDS: CALMOSEPTINE OINTMENT TP PRN (09:01)
[2016-10-12] MEDS: NYSTOP POWDER TP SCH (09:01)
--- NOTE | 2016-10-12 09:06 | PCM.PROG ---
Attending Provider: ATTENDING PROVIDER: Dr. ANTONETTE TOMPKINS DATE OF SERVICE: 10/12/16 - TRANSFER TO [facility] SUBJECTIVE: This 71 year old WHITE/ F was hospitalized 10/07/16. The patient says she doesn't feel as bad today as the first day. Discussed renal ultrasound results with the patient and referral will be needed. The patient is in agreement. The patient had one episode of vomiting, still complains of some nausea. No fever. No PND, no orthopnea. The patient was admitted to [facility] in May for a GI bleed, had an endoscopy that showed severe gastritis. REVIEW OF SYSTEMS: CONSTITUTIONAL: No fever, no chills. ENDOCRINE: No weight loss or weight gain. HEENT: No sinus drainage, no sore throat. CVS: No angina symptoms. No CHF symptoms. No palpitations. No atypical chest pain for CAD. No shortness of breath. RESPIRATORY: No cough, no hemoptysis. GI: Nausea. No melena. No abdominal pain. : No hematuria. No polyuria. SKIN: No rash. No wounds. MUSCULOSKELETAL: No pain. VOCATIONAL TRAINING TEACHER: No blackout, no dizziness. No headache. No double vision. PSYCHIATRIC: Not anxious; no depression. No suicidal thoughts. No homicidal thoughts. PHYSICAL EXAMINATION: GENERAL: Lying in bed in no distress. VITAL SIGNS: Temperature 98.3 F, Pulse 60, Respiratory Rate 16, BP 130/59, Pulse Ox 100% HEENT: Normocephalic, atraumatic. Mucosa is dry, pallor positive. NECK: No JVP, no carotid bruit. No lymphadenopathy. CARDIAC: S1, S2, no S3. Systolic murmur. LUNGS: Clear to auscultation. ABDOMEN: Distention with some abdominal discomfort. Bowel sounds active. No rigidity, guarding or CVA tenderness. EXTREMITIES: No clubbing, cyanosis or edema. Right radial pulse is diminished. with history of right brachial stenosis. NEUROLOGIC: Awake, alert and oriented x3. LYMPHATIC: No palpable lymph nodes SKIN: Not dry. Intact. MUSCULOSKELETAL: No joint swelling. LAB REVIEW: 10/12/16 04:53 10/12/16 04:53 10/12/16 04:53: WBC 12.56 H, RBC 4.15 L, Hgb 13.0, Hct 38.2, MCV 92.0, MCH 31.3 H, MCHC 34.0, RDW Coeff of Dinah 14.5, Plt Count 138 L, Immature Gran % (Auto) 0.6 , Neut % (Auto) 86.9, Lymph % (Auto) 5.3 L, Harney % (Auto) 5.0, Eos % (Auto) 1.8 , Baso % (Auto) 0.4, Immature Gran # (Auto) 0.1, Neut # 10.9 H, Lymph # 0.7, Harney # 0.6, Eos # 0.2, Baso # 0.1, PT 11.7 H, INR 1.14, Sodium 138, Potassium 4.8, Chloride 103, Carbon Dioxide 25, Anion Gap 14.8, BUN 39 H, Creatinine 1.33 H, Estimated GFR (MDRD) 39.00, BUN/Creatinine Ratio 29.32, Glucose 153 H, Calcium 8.3, Total Bilirubin 1.83 H, AST 61 H, ALT 45, Alkaline Phosphatase 371 H D, Total Protein 6.4, Albumin 2.4 L, Globulin 4.0, Albumin/Globulin Ratio 0.60 10/11/16 04:00: TSH 0.421, Free T4 1.05 ASSESSMENT: 1. Bilateral kidney mass question malignancy per US 2. Enlarged thyroid, normal TSH so nonfunctioning thyroid 3. Status post acute respiratory failure secondary to acute on chronic heart failure and fluid overload 4. Hypertensive urgency resolved 5. History of gastritis, severe 6. Alcohol hepatic cirrhosis, end-stage 7. History of angina 8. Hypertension borderline 9. Dyslipidemia 10. Diabetes mellitus 11. GERD 12. 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 Anemia with history of blood transfusion 14. History of heart disease with moderate aortic regurgitation 15. Alzheimer's dementia 16. Depression PLAN: 1. Daily I & O's 2. Will talk with urologist for possible transfer and evaluation of renal mass if not patient will be discharged back to [place]. 3. CBC, CMP in one week and then every 3 months. 4, Resume [place] medications. 5. Transferred to [facility] under Dr. Rodriguez. Plan and coordination of the patient's care discussed in the presence of Conservation Scientist and nurse. CONDITION: Stable SCRIBED BY: VAHID TEAGUE Field Secretary scribed while in presence of service performed by Dr. ANTONETTE TOMPKINS on 10/12/16 ([id number])
--- NOTE | 2016-10-26 15:07 | DS ---
DATE OF SERVICE: 10/12/16 - TRANSFERRED TO [facility] - DR. IRENE FINAL DIAGNOSIS: 1. BILATERAL RENAL MASSES MOST LIKELY MALIGNANCY 2. STATUS POST ACUTE RESPIRATORY FAILURE SECONDARY TO ACUTE ON CHRONIC HEART FAILURE AND FLUID OVERLOAD 3. HYPERTENSIVE URGENCY WHICH HAS RESOLVED 4. HISTORY OF ACUTE GASTRITIS, SEVERE PER ENDOSCOPY, MAY 2017 AT [facility] 5. ALCOHOLIC HEPATIC CIRRHOSIS, END STAGE 6. HISTORY OF ANGINA, STABLE 7. HYPERTENSION 8. DYSLIPIDEMIA 9. DIABETES 10. GERD 11. RIGHT BRACHIAL ARTERY STENOSIS, LOW BLOOD PRESSURE ON THE RIGHT SIDE 12. ANEMIA WITH HISTORY OF BLOOD TRANSFUSION 13. HISTORY OF HEART DISEASE WITH RHEUMATIC HEART DISEASE WITH MODERATE AORTIC REGURGITATION 14. ALZHEIMER'S DEMENTIA 15. DEPRESSION DISCHARGE INSTRUCTIONS: Discharge the patient to [facility] under the care of Dr. Irene. MEDICATIONS AT DISCHARGE: Continue all medications per reconciliation NEW PRESCRIPTIONS: None DIET INSTRUCTIONS: 2 gm sodium, low cholesterol diet. ACTIVITY: Bedrest. SMOKING: N/A DISEASE SPECIFIC EDUCATION: Renal mass, questionable malignancy Acute gastritis End-stage liver disease Fluid overload All discussed with the patient multiple times. The patient verbalized understanding. HOSPITAL COURSE: This is a 71-year-old female with multiple medical problems came to the emergency room with severe shortness of breath, elevated blood pressure of 194/ 88, seen by Dr. He in the emergency room. ABG showed pH 7.47, pc02 38.5, p02 55. The patient was given some Lasix and Morphine, admitted to the hospital with fluid overload, and hypertensive urgency. BNP was 803. CT of the chest was done which showed cardiomegaly with pulmonary vascular congestion, bilateral pleural effusion, severe atherosclerotic disease, hepatic cirrhosis with splenomegaly, enlarged thyroid gland. The patient was admitted to the hospital and was started on Protonix 40 mg p.o. b.i.d., Teddy. Lasix 40 mg IV push was given. She was started on Rocephin; continued home medications. Gradually, the patient started feeling better. Lasix IV push was given daily 40 mg. GI cocktail was also given for stomach pain in view of recent severe gastritis per EGD from [facility]. Gradually, she started feeling better. PT /INR was stable. Creatinine was stable. She was able to sit in the bed from the chair. Her Holloway score 13 on the day of discharge. Further evaluation of the renal ultrasound showed masses which may be consistent with a malignancy. At that time we talked to [facility]. Dr. Irene was courteous enough to accept the patient and the patient eventually transferred to [facility] for further care. TIME SPENT: More than 50 minutes today. LOTTIE
== END 2016-10-12 12:45 | disposition other institution (70) | DRG 698 ==
LOC: ED 07:36 → MEDSURG B 16:41
PROVIDERS: ADMIT Emergency Medicine; ATTEND Emergency Medicine
DX: N28.89 Other specified disorders of kidney and ureter (principal); J96.01 Acute respiratory failure with hypoxia; C64.2 Malignant neoplasm of left kidney, except renal pelvis; C64.1 Malignant neoplasm of right kidney, except renal pelvis; R06.02 Shortness of breath; I50.9 Heart failure, unspecified; E87.70 Fluid overload, unspecified; I70.8 Atherosclerosis of other arteries; I95.9 Hypotension, unspecified; I16.0 Hypertensive urgency; R07.89 Other chest pain; R19.7 Diarrhea, unspecified; I10 Essential (primary) hypertension; E11.9 Type 2 diabetes mellitus without complications; I20.8 Other forms of angina pectoris; K29.70 Gastritis, unspecified, without bleeding; K70.30 Alcoholic cirrhosis of liver without ascites; D64.9 Anemia, unspecified; I06.1 Rheumatic aortic insufficiency; E04.9 Nontoxic goiter, unspecified; G30.9 Alzheimer's disease, unspecified; F02.80 Dementia in other diseases classified elsewhere, unspecified severity, without behavioral disturbance, psychotic disturbance, mood disturbance, and anxiety; F32.9 Major depressive disorder, single episode, unspecified; M75.82 Other shoulder lesions, left shoulder; R09.02 Hypoxemia; M75.81 Other shoulder lesions, right shoulder; Z86.718 Personal history of other venous thrombosis and embolism; Z86.73 Personal history of transient ischemic attack (TIA), and cerebral infarction without residual deficits; Z79.899 Other long term (current) drug therapy; Z79.4 Long term (current) use of insulin
CPT/HCPCS: 36415; 76770; 80053; 81001; 82140; 82272; 82550; 82803; 82962; 83605; 83880; 84145; 84439; 84443; 84484; 85025; 85379; 85610; 87040; 87081; 93005; 93010; 94640; 96361; 96365; 96375; 99222; 99233; 99239; 99284

== ENCOUNTER 2016-10-12 12:51 | Outpatient (CLI) | END 2016-10-12 12:52 | LOC: AMBL 12:51 | PROVIDERS: ATTEND Emergency Medicine | DX: N28.89 Other specified disorders of kidney and ureter (principal); R00.1 Bradycardia, unspecified ==

== ENCOUNTER 2016-12-27 07:25 | Inpatient (IN) ==
[2016-12-27] MEDS ORDERED: SODIUM CHLORIDE 500 ML IV STA (07:30)
[2016-12-27 07:39] LABS: ABG BASE EXCESS 1 (-2.0-2.0); ABG HCO3 23.7 (22.0-26.0); ABG PCO2 28.9 mmHg (35-45); ABG PH 7.52 (7.35-7.45); ABG TCO2 25 (22.0-28.0)
[2016-12-27 07:51] LABS: BASOPHILS # (AUTO) 0.1 K/uL (0-0.2); BASOPHILS % (AUTO) 0.8 % (0.0-3.0); EOSINOPHILS # (AUTO) 0.4 K/ul (0.0-0.7); EOSINOPHILS % (AUTO) 4.7 % (0.0-7.0); HEMOGLOBIN 12.3 g/dl (12.0-16.0); IMMATURE GRANULOCYTE % (AUTO) 0.8 % (0.0-5.0); LYMPHOCYTES # (AUTO) 1.4 K/uL (0.60-3.4); LYMPHOCYTES % (AUTO) 17.1 (10.0-50.0); MEAN CORPUSCULAR HEMOGLOBIN 31.3 pg (27.0-31.0); MEAN CORPUSCULAR HGB CONC 34.2 (31.8-35.4); MEAN CORPUSCULAR VOLUME 91.6 fl (81.0-99.0); MONOCYTES # (AUTO) 0.7 K/uL (0.4-2.0); MONOCYTES % (AUTO) 7.9 (0-10); NEUTROPHILS # (AUTO) 5.7 K/ul (2.0-6.9); NEUTROPHILS % (AUTO) 68.7; PLATELET COUNT 98 10^3/uL (140-440); RED BLOOD COUNT 3.93 10^6/ul (4.20-5.40); WHITE BLOOD COUNT 8.36 K/ul (4.6-10.2)
[2016-12-27 08:06] LABS: BILIRUBIN,URINE Negative (NEGATIVE); KETONES,URINE Negative (NEGATIVE); LEUKOCYTE ESTERASE ,URINE 3+ (NEGATIVE); NITRITE,URINE Negative (NEGATIVE); PROTEIN,URINE Negative (NEGATIVE); URINE, BLOOD 1+ (NEGATIVE)
[2016-12-27 08:07] LABS: ADD URINE MICROSCOPIC YES
[2016-12-27 08:34] LABS: ALBUMIN 2.4 g/dL (3.4-5.0); ALBUMIN/GLOBULIN RATIO 0.6; ANION GAP 13.8; BILIRUBIN,TOTAL 1.3 mg/dL (0.00-1.20); BUN/CREATININE RATIO 31.7; CALCIUM 9.3 mg/dL (8.2-10.2); CREATININE 1.23 mg/dL (0.60-1.30); POTASSIUM 4.8 mmol/L (3.5-5.10); TOTAL PROTEIN 6.4 g/dL (5.8-8.1); TROPONIN I 0.043 ng/ml (0.0000-0.4000)
--- NOTE | 2016-12-27 08:40 | CT ---
Exam: CT exam of the chest without intravenous contrast. Comparison: 10/07/2016. Reason for exam: Cough. FINDINGS: No pneumothorax. There are small bilateral dependent pleural effusions with ground-glass nodularity. Similar appearing cardiomegaly and interstitial edema. Dense atherosclerotic disease i s seen within the aorta and distal arterial vasculature to include the coronary vessels. No osteobl astic or osteolytic lesions. The thyroid gland is prominent and heterogeneous in appearance. The partially imaged liver appears diminutive with a nodular contour and perihepatic free fluid. Th e gallbladder is been removed. Impression: 1. Cardiomegaly with interstitial edema and small pleural effusions. 2. Ground-glass nodularity consistent with inflammation or infection. Recommend follow-up evaluati on to document resolution. 3. Marked atherosclerotic disease. 4. Cirrhosis with portal venous hypertension. 5. Thyromegaly.
--- NOTE | 2016-12-27 08:43 | CT ---
EXAM: CT Head HISTORY: Altered, unresponsive COMPARISON: 09/07/2014 TECHNIQUE: CT head performed without contrast FINDINGS: There is no mass effect, midline shift, or intracranial hemmorhage. Cooper white different iation is preserved. There is no extra-axial collection. The ventricles, sulci, and basal cisterns are patent and symmetric. There is chronic ischemic disease of the white matter and cerebral volum e loss. There is no depressed calvarial fracture. Small scattered nonspecific calcifications presen t. The mastoid air cells are clear. The visualized paranasal sinuses are clear. There are intracrani al atherosclerotic calcifications. IMPRESSION: 1. No acute intracranial abnormality. 2. Chronic ischemic disease of the white matter and cerebral volume loss.
--- NOTE | 2016-12-27 08:45 | CT ---
EXAM: CT ABDOMEN AND PELVIS HISTORY: Abdominal pain TECHNIQUE: CT abdomen and pelvis without intravenous contrast. Images were reconstructed using 5 m m section thickness. Reformations were prepared. COMPARISON: 10/07/2016 FINDINGS: Diagnostic limitations exist without including contrast enhanced images. Limitations also include a rtifact from motion and the arms remaining down within the scanning field of view. Advanced hepatic cirrhosis is again noted. Splenic size is upper limit normal at 13 cm. No focal hepatic or splenic lesions are identified. Gallbladder is absent. There is fatty enlargement of at least the left adr enal gland suggesting adenomatous involvement. No hydronephrosis or evidence of ureteral obstruction . Severe atherosclerotic disease without aneurysmal caliber of the aorta. No gastric distension. The appendix has been removed. There is moderate distal colon diverticulosis . It would be difficult to exclude mild diverticular inflammation at the sigmoid level. Nonobstruc tive bowel gas pattern. Urinary bladder is unremarkable. No uterus is seen. There is a tiny amoun t of perihepatic ascites. No abdominal wall hernia. Moderately severe degenerative changes of the lower spine. Left lung base consolidations or pneumoperitoneum. IMPRESSION: 1. Advanced hepatic cirrhosis with borderline splenomegaly and a tiny amount of perihepatic ascites . 2. Moderate diverticulosis of the distal colon. It would be difficult to exclude mild diverticular inflammation at this level. Normal bowel gas pattern. No free air or abscess. 3. Severe atherosclerotic disease.
[2016-12-27] MEDS ORDERED: CARDENE-NACL 20 MG/200 ML SOLN 20 MG in PREMIX 200ML 0.86% SODIUM CHLORIDE 1 BAG IV SCH (09:00)
[2016-12-27] MEDS ORDERED: CARDENE-NACL 20 MG/200 ML SOLN 200 ML IV ONE (09:19)
[2016-12-27] MEDS ORDERED: SODIUM CHLORIDE 1,000 ML IV STA (09:21)
[2016-12-27] MEDS ORDERED: HUMULIN R SUBCUT STA (09:28)
--- NOTE | 2016-12-27 09:29 | ED.PDOC ---
General ED Provider: Dr. KUN KNOWLES Chief Complaint: Altered Mental Status Stated Complaint: altered Time Seen by Physician: 07:30 (EMS ARRIVES WITH PT ALTERED BUT AROUSABLE ) Mode of Arrival: Ambulance Information Source: Senior Living, EMT Exam Limitations: No limitations Primary Care Provider: TORSTEN TORRES Nursing and Triage Documentation Reviewed and Agree: Yes Review of Systems - Review Of Systems Constitutional: Reports: Malaise Eyes: Reports: No symptoms Ears, Nose, Mouth, Throat: Reports: No symptoms Respiratory: Reports: Cough Cardiac: Reports: No symptoms GI: Reports: Abdominal pain : Reports: No symptoms Musculoskeletal: Reports: No symptoms Skin: Reports: No symptoms Neurological: Reports: Cognitive dysfunction Endocrine: Reports: No symptoms Hematologic/Lymphatic: Reports: No symptoms All Other Systems: Reviewed and Negative Past Medical History - Past Medical History Previously Healthy: Yes Endocrine: Reports: DM 2, Dyslipidemia Cardiovascular: Reports: Hypertension, Other (Edema) Respiratory: Reports: None Hematological: Reports: None Gastrointestinal: Reports: GERD, Other (IBS) Genitourinary: Reports: None Neuro/Psych: Reports: None, Other ( Neuropathy ) Musculoskeletal: Reports: None Cancer: Reports: None Last Menstrual Period: NA Other Pertinent Past Medical History: Recent Falls, IBS, Edema, Neuropathy htn dm chol - Surgical History General Surgical History: Reports: Cholecystectomy (Gallbladder removed, unable to get surgical history) - Family History Family History: Reports: None - Social History Smoking Status: Former smoker Hx Substance Use: Yes (ALCOHOL) Alcohol Screening: None Physical Exam - Physical Exam Appearance: Ill-appearing Ill-appearing: Moderate Pain Distress: Moderate Eyes: PABLO, EOMI, Conjunctiva clear ENT: Dry mucosa Respiratory: Airway patent, Breath sounds clear, Breath sounds equal, Respirations nonlabored Cardiovascular: RRR, Pulses normal, No rub, No murmur GI/: Soft, Nontender, No masses, Bowel sounds normal, No Organomegaly Musculoskeletal: Normal strength, ROM intact, No edema, No calf tenderness Skin: Warm, Dry, Normal color Neurological: Disoriented Psychiatric: Affect appropriate, Mood appropriate Interpretation - Radiology Interpretation Radiology Interpretation By: Radiologist Radiology Results: No acute changes Re-Evaluation - Re-Evaluation Time of Re-Evaluation: 09:30 Status: Unchanged Vital Signs Stable: Yes (CARDENE STOPED BP SYSTOLIC 154/60 ) Appearance: NAD Lungs: Clear Skin: Warm and Dry Neuro: Other (NOT ORIENTATED) CV: RRR Physician Notification - Case Discussed Physician Notified: [email or web address] Time of Notification: 09:30 Critical Care Note - Critical Care Note Total Time (mins): 0 Course - Course Hematology/Chemistry: 12/27/16 07:40 12/27/16 07:40 Orders, Labs, Meds: Lab Review 12/27/16 12/27/16 12/27/16 07:30 07:40 07:53 WBC 8.36 RBC 3.93 L Hgb 12.3 Hct 36.0 L MCV 91.6 MCH 31.3 H MCHC 34.2 RDW Coeff of Dinah 14.5 Plt Count 98 L Immature Gran % (Auto) 0.8 Neut % (Auto) 68.7 Lymph % (Auto) 17.1 [place] % (Auto) 7.9 Eos % (Auto) 4.7 Baso % (Auto) 0.8 Immature Gran # (Auto) 0.1 Neut # 5.7 Lymph # 1.4 [place] # 0.7 Eos # 0.4 Baso # 0.1 Puncture Site R rad O2 Saturation 98.0 ABG pH 7.52 H* ABG pCO2 28.9 L ABG pO2 93.0 ABG HCO3 23.7 ABG Total CO2 25 ABG Base Excess 1 Gibran Test + FiO2 % 21.0 Sodium 144 Potassium 4.8 Chloride 112 H Carbon Dioxide 23 Anion Gap 13.8 BUN 39 H Creatinine 1.23 Estimated GFR (MDRD) 43.00 BUN/Creatinine Ratio 31.70 Glucose 99 Lactic Acid 12.5 Calcium 9.3 Total Bilirubin 1.30 H AST 54 H ALT 36 Alkaline Phosphatase 411 H Ammonia 131 H Total Creatine Kinase 34 Troponin I 0.0430 Total Protein 6.4 Albumin 2.4 L Globulin 4.0 Albumin/Globulin Ratio 0.60 Procalcitonin 0.37 TSH 0.126 L Free T4 1.01 Urine Color Yellow Urine Clarity Cloudy Urine pH 8.0 Ur Specific Crystal 1.015 Urine Protein Negative Urine Glucose (UA) Negative Urine Ketones Negative Urine Blood 1+ Urine Nitrite Negative Urine Bilirubin Negative Urine Urobilinogen 2.0 Ur Leukocyte Esterase 3+ Urine Microscopic WBC Tntc Ur Squamous Epith Cells Not present Orders Category Date Time Status ABG DRAW REQUEST Stat CARDIO 12/27/16 07:30 Completed EKG-(ED ONLY) Stat CARDIO 12/27/16 07:29 Completed EKG-(ED ONLY) Stat CARDIO 12/27/16 08:38 Ordered ED IV/MEDIPORT/POWERPORT .ONCE EMERGENCY 12/27/16 07:29 Active ABG Stat LAB 12/27/16 07:30 Completed AMMONIA Stat LAB 12/27/16 07:40 Completed BLOOD CULTURE Stat LAB 12/27/16 07:40 Received CBC W/ AUTO DIFF Stat LAB 12/27/16 07:40 Completed COMPREHENSIVE METABOLIC PANEL Stat LAB 12/27/16 07:40 Received CREATINE KINASE Stat LAB 12/27/16 07:40 Received FREE T4 (FREE THYROXINE) Stat LAB 12/27/16 07:40 Received LACTIC ACID Stat LAB 12/27/16 07:40 Completed PROCALCITONIN Stat LAB 12/27/16 07:40 Completed THYROID STIMULATING HORMONE Stat LAB 12/27/16 07:40 Received TROPONIN I Stat LAB 12/27/16 07:40 Received URINALYSIS C & S IF INDICATED Stat LAB 12/27/16 07:53 Completed URINE CULTURE Stat LAB 12/27/16 08:10 Received 0.9 % Sodium Chloride [Saline Flush] MEDS 12/27/16 07:29 Active 1 syr IVF PRN PRN [id number] MG in 0.86% SODIUM CHLORIDE @ 5 MG/HR( MEDS 12/27/16 09:00 Ordered 200ml) 0.9 % Sodium Chloride [Premix 200Ml 0.86% Sodium Chloride] 1 bag Nicardipine in NaCl, Iso-Osm [Cardene-NaCl 20 mg/200 ml Soln] 20 mg IV 5 mg/hr Sodium Chloride 0.9% [Sodium Chloride] 500 ml MEDS 12/27/16 07:[address] ABDOMEN/PELVIS WO CONTRAST Stat RADS 12/27/16 07:[address] CHEST W/O CONTRAST Stat RADS 12/27/16 07:[address] HEAD W/O CONTRAST Stat RADS 12/27/16 07:28 Ordered Medications Generic Name Dose Route Start Last Admin Trade Name Freq PRN Reason Stop Dose Admin NICARDIPINE IN NACL, ISO-OSM 200 mls @ 50 mls/hr 12/27/16 09:00 12/27/16 08: 49 20 mg/ Sodium Chloride IV 5 mg/hr .Q4H JASON 50 mls/hr Protocol Administration 5 MG/HR Sodium Chloride 1 syr 12/27/16 07:29 12/27/16 08:56 Saline Flush IVF 1 syr PRN PRN Administration To flush IV Discontinued Medications Generic Name Dose Route Start Last Admin Trade Name Pretty PRN Reason Stop Dose Admin Sodium Chloride 500 mls @ 500 mls/hr 12/27/16 07:30 12/27/16 07:55 Sodium Chloride IV 12/27/16 08:29 250 mls/hr BOLUS STA Administration Vital Signs: Temp Pulse Resp BP Pulse Ox 12/27/16 07:27 99.6 F 66 20 158/0 H 100 Departure - Departure Time of Disposition: 09:31 Disposition: ADMITTED INPATIENT Discharge Problem: Altered mental status, Hepatic encephalopathy Instructions: Altered Mental Status (ED) Condition: Fair Pt referred to PMD for follow-up: Yes (ADMITT) Allergies/Adverse Reactions: Allergies adhesive tape Adverse Reaction (Verified 12/27/16 08:25) aspirin Adverse Reaction (Verified 12/27/16 08:25) Cephalosporins Adverse Reaction (Verified 10/07/16 07:57) NSAIDS (Non-Steroidal Anti-Inflamma Adverse Reaction (Verified 12/27/16 08:25) phenobarbital Adverse Reaction (Verified 10/07/16 07:57) povidone-iodine Adverse Reaction (Verified 10/07/16 07:57) soap [From Betadine] Adverse Reaction (Verified 10/07/16 07:57) Home Medications: Ambulatory Orders Furosemide [Lasix Tab] 40 mg PO DAILY 01/03/15 Isosorbide Dinitrate 30 mg PO DAILY 01/03/15 Memantine HCl [Namenda Xr] 28 mg PO DAILY 01/03/15 Acetaminophen [Tylenol] 650 mg PO Q8H PRN 05/16/16 Ascorbate Calcium [Vitamin C] 500 mg PO BID 05/16/16 Carvedilol 3.125 mg PO BID 05/16/16 Dextran 70/Hypromellose/Pf [Artificial Tears Drops] 1 each OP BEDTIME 05/16/16 Esomeprazole Magnesium [Nexium] 40 mg PO DAILY 05/16/16 Ferrous Sulfate 325 mg PO BID 05/16/16 Hydrocodone/Acetaminophen [Hydrocodon-Acetaminophen 5-325] 5 mg PO TID 05/16/16 Insulin Aspart [Novolog Flexpen] 1 unit SQ DIRECTED PRN 05/16/16 Insulin Detemir [Levemir] 40 unit SUBCUT QAM 05/16/16 Liraglutide [Victoza 2-Anthony] 0.6 mg SQ DAILY 05/16/16 Multivitamin with Minerals [Daily Vitamin Formula-Minerals] 1 each PO DAILY Pregabalin [Lyrica] 25 mg PO Q12HR 05/16/16 Sertraline HCl 25 mg PO BEDTIME 05/16/16 Spironolactone 25 mg PO BID 05/16/16 Bisacodyl [Women's Laxative] 5 mg PO DAILY PRN 10/07/16 Mag Hydrox/Al Hydrox/Simeth [Mylanta Susp] 30 ml PO Q3HR PRN 10/07/16 Glycerin/Propylene Glycol [Artificial Tears Drops] 15 ml OP BEDTIME 12/27/16 Mirtazapine 7.5 mg PO DAILY 12/27/16 NPH, Human Insulin Isophane [Novolin N Insulin] 1 unit SUBCUT QDAC 12/27/16 Disposition Discussed With: Patient
[2016-12-27] MEDS ORDERED: ROCEPHIN 1 GM in SODIUM CHLORIDE 50 ML IV SCH (09:30)
[2016-12-27] MEDS ORDERED: LACTULOSE RC SCH ×2 (09:30→13:00)
[2016-12-27 10:27] VITALS: BMI 29.8
[2016-12-27] MEDS: ZOSYN 3.375 GM 3.375 GM in SODIUM CHLORIDE 100 ML IV SCH ×4 (11:16→23:07)
[2016-12-27] MEDS: LACTULOSE RC SCH ×2 (12:56→20:34)
[2016-12-27] MEDS: FLAGYL 500 MG/100 ML 500 MG in PREMIX 100 ML NS 1 BAG IV SCH ×2 (13:42→20:34)
[2016-12-27 16:35] LABS: TROPONIN I 0.063 ng/ml (0.0000-0.4000)
[2016-12-27] MEDS: COREG PO SCH (19:05)
[2016-12-27] MEDS: ARTIFICIAL TEARS OPTH SOL OP SCH (20:34)
[2016-12-27] MEDS: ALDACTONE PO SCH ×2 (20:34→20:55)
[2016-12-27] MEDS ORDERED: COREG PO SCH (21:00)
[2016-12-27] MEDS ORDERED: GLYCERIN OP SCH (21:00)
[2016-12-27] MEDS ORDERED: PROPYLENE GLYCOL OP SCH (21:00)
[2016-12-27 23:35] LABS: TROPONIN I 0.063 ng/ml (0.0000-0.4000)
[2016-12-28] MEDS: FLAGYL 500 MG/100 ML 500 MG in PREMIX 100 ML NS 1 BAG IV SCH ×3 (04:09→20:53)
[2016-12-28 05:40] LABS: BASOPHILS # (AUTO) 0.1 K/uL (0-0.2); EOSINOPHILS # (AUTO) 0.4 K/ul (0.0-0.7); HEMATOCRIT 35.4 % (37.0-47.0); IMMATURE GRANULOCYTE % (AUTO) 0.7 % (0.0-5.0); LYMPHOCYTES # (AUTO) 1.2 K/uL (0.60-3.4); LYMPHOCYTES % (AUTO) 14.2 (10.0-50.0); MEAN CORPUSCULAR HEMOGLOBIN 31.4 pg (27.0-31.0); MEAN CORPUSCULAR HGB CONC 33.9 (31.8-35.4); MEAN CORPUSCULAR VOLUME 92.7 fl (81.0-99.0); MONOCYTES # (AUTO) 0.7 K/uL (0.4-2.0); NEUTROPHILS # (AUTO) 5.8 K/ul (2.0-6.9); NEUTROPHILS % (AUTO) 70.1; PLATELET COUNT 97 10^3/uL (140-440); RED BLOOD COUNT 3.82 10^6/ul (4.20-5.40); WHITE BLOOD COUNT 8.22 K/ul (4.6-10.2)
[2016-12-28 06:02] LABS: ALBUMIN 2.3 g/dL (3.4-5.0); ALBUMIN/GLOBULIN RATIO 0.48; ANION GAP 13.4; BILIRUBIN,TOTAL 2.16 mg/dL (0.00-1.20); BUN/CREATININE RATIO 26.31; CALCIUM 9.3 mg/dL (8.2-10.2); CREATININE 1.14 mg/dL (0.60-1.30); POTASSIUM 4.4 mmol/L (3.5-5.10); TOTAL PROTEIN 7.1 g/dL (5.8-8.1)
[2016-12-28] MEDS: ZOSYN 3.375 GM 3.375 GM in SODIUM CHLORIDE 100 ML IV SCH ×3 (06:03→18:55)
[2016-12-28] MEDS: LASIX TAB PO SCH (06:04)
[2016-12-28] MEDS ORDERED: NON-FORMULARY MEDICATION (Isosorbide Dinitrate [Isosorbide Dinitrate] 30 MG) PO SCH ×22 (09:00)
[2016-12-28] MEDS: XIFAXAN PO SCH ×2 (09:09→20:53)
[2016-12-28] MEDS: COREG PO SCH ×2 (09:10→17:44)
[2016-12-28] MEDS: SORBITRATE PO SCH (09:10)
[2016-12-28] MEDS: ALDACTONE PO SCH ×2 (09:10→20:53)
[2016-12-28] MEDS: LACTULOSE RC SCH (09:13)
--- NOTE | 2016-12-28 11:15 | PCM.PROG ---
Attending Provider: ATTENDING PROVIDER: Dr. ANTONETTE TOMPKINS - HOSPITALIST DATE OF SERVICE: 12/28/16 SUBJECTIVE: This 71 year old WHITE/ F was hospitalized 12/27/16 hepatic encephalopathy. The patient had lactulose enema. Ammonia dropped to 45 from 131. She is still sleeping, responds to verbal stimuli and goes back to sleep. The patient is at high risk for aspiration and the patient's daughter had concern about her prognosis. REVIEW OF SYSTEMS: CONSTITUTIONAL: No fever, no chills. ENDOCRINE: No weight loss or weight gain. HEENT: No sinus drainage, no sore throat. CVS: No angina symptoms. No CHF symptoms. No palpitations. No atypical chest pain for CAD. No shortness of breath. RESPIRATORY: No cough, no hemoptysis. GI: No melena. Abdominal tenderness all over. No nausea, no vomiting. : No hematuria. No polyuria. SKIN: No rash. No wounds. MUSCULOSKELETAL: No pain. GARBAGE STOKER: No blackout, no dizziness. No headache. No double vision. PSYCHIATRIC: Not anxious; no depression. No suicidal thoughts. No homicidal thoughts. PHYSICAL EXAMINATION: GENERAL: Lying in bed in no distress. VITAL SIGNS: Temperature 97.2 F, Pulse 58, Respiratory Rate 20, BP 132/68, Pulse Ox 98% HEENT: Normocephalic, atraumatic. Mucosa is dry, pallor positive. NECK: No JVP, no carotid bruit. No lymphadenopathy. CARDIAC: S1, S2, no S3. Loud pansystolic murmur. LUNGS: Decreased breath sounds, basilar crackles. ABDOMEN: Abdominal tenderness all over. Bowel sounds active. No rigidity, guarding or CVA tenderness. EXTREMITIES: 1+ edema. No clubbing, cyanosis. NEUROLOGIC: Responds to verbal stimulus and goes back to sleep. LYMPHATIC: No palpable lymph nodes SKIN: Not dry. Intact. MUSCULOSKELETAL: No joint swelling. LAB REVIEW: 12/28/16 05:38 12/28/16 05:38 12/28/16 06:38: Ammonia 40 H 12/28/16 05:38: WBC 8.22, RBC 3.82 L, Hgb 12.0, Hct 35.4 L, MCV 92.7, MCH 31.4 H , MCHC 33.9, RDW Coeff of Dinah 14.6, Plt Count 97 L, Immature Gran % (Auto) 0.7, Neut % (Auto) 70.1, Lymph % (Auto) 14.2, [place] % (Auto) 9.0, Eos % (Auto) 5.0, Baso % (Auto) 1.0, Immature Gran # (Auto) 0.1, Neut # 5.8, Lymph # 1.2, [place] # 0.7, Eos # 0.4, Baso # 0.1, Sodium 146 H, Potassium 4.4, Chloride 115 H, Carbon Dioxide 22 L, Anion Gap 13.4, BUN 30 H, Creatinine 1.14, Estimated GFR (MDRD) 47.00, BUN/Creatinine Ratio 26.31, Glucose 101, Calcium 9.3, Total Bilirubin 2.16 H, AST 60 H, ALT 38, Alkaline Phosphatase 390 H, Total Protein 7.1, Albumin 2.3 L, Globulin 4.8, Albumin/Globulin Ratio 0.48 12/27/16 23:00: Total Creatine Kinase 31, Troponin I 0.0630 12/27/16 16:05: Total Creatine Kinase 57, Troponin I 0.0630 ASSESSMENT: 1. Hepatic encephalopathy 2. Colitis - questionable diverticulitis per CT scan 3. UTI 4. 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 Coronary artery disease 6. CHF 7. Osteoarthritis 8. DJD spine 9. Depression PLAN: 1. Continue lactulose enema 2. NPO until the patient is awake 3. Change fluids to D5 NS 4. Continue Zyvox and Flagyl IV Plan and coordination of the patient's care discussed in the presence of Manager Lab and nurse. CONDITION: Stable SCRIBED BY: VAHID TEAGUE Coffee Brewer scribed while in presence of service performed by Dr. ANTONETTE TOMPKINS, HOSPITALIST on 12/28/16 ([id number])
[2016-12-28] MEDS: HUMULIN R SUBCUT PRN ×2 (14:23→18:02)
[2016-12-28] MEDS: ARTIFICIAL TEARS OPTH SOL OP SCH (20:53)
[2016-12-29] MEDS: ZOSYN 3.375 GM 3.375 GM in SODIUM CHLORIDE 100 ML IV SCH ×5 (00:10→23:42)
[2016-12-29] MEDS: FLAGYL 500 MG/100 ML 500 MG in PREMIX 100 ML NS 1 BAG IV SCH ×3 (04:02→21:43)
[2016-12-29 05:27] LABS: BASOPHILS # (AUTO) 0.1 K/uL (0-0.2); BASOPHILS % (AUTO) 0.5 % (0.0-3.0); EOSINOPHILS # (AUTO) 0.1 K/ul (0.0-0.7); EOSINOPHILS % (AUTO) 0.8 % (0.0-7.0); HEMATOCRIT 34.5 % (37.0-47.0); HEMOGLOBIN 11.8 g/dl (12.0-16.0); IMMATURE GRANULOCYTE % (AUTO) 0.5 % (0.0-5.0); LYMPHOCYTES # (AUTO) 1.2 K/uL (0.60-3.4); LYMPHOCYTES % (AUTO) 9.2 (10.0-50.0); MEAN CORPUSCULAR HEMOGLOBIN 31.3 pg (27.0-31.0); MEAN CORPUSCULAR HGB CONC 34.2 (31.8-35.4); MEAN CORPUSCULAR VOLUME 91.5 fl (81.0-99.0); MONOCYTES # (AUTO) 0.9 K/uL (0.4-2.0); MONOCYTES % (AUTO) 6.9 (0-10); NEUTROPHILS # (AUTO) 10.9 K/ul (2.0-6.9); NEUTROPHILS % (AUTO) 82.1; PLATELET COUNT 92 10^3/uL (140-440); RED BLOOD COUNT 3.77 10^6/ul (4.20-5.40); WHITE BLOOD COUNT 13.26 K/ul (4.6-10.2)
[2016-12-29] MEDS: LASIX TAB PO SCH (05:47)
[2016-12-29 05:48] LABS: ALBUMIN 2.1 g/dL (3.4-5.0); ALBUMIN/GLOBULIN RATIO 0.53; ANION GAP 12.6; BILIRUBIN,TOTAL 2.4 mg/dL (0.00-1.20); BUN/CREATININE RATIO 20.17; CALCIUM 8.9 mg/dL (8.2-10.2); CREATININE 1.14 mg/dL (0.60-1.30); POTASSIUM 3.6 mmol/L (3.5-5.10); TOTAL PROTEIN 6.1 g/dL (5.8-8.1)
[2016-12-29] MEDS: HUMULIN R SUBCUT PRN ×5 (06:14→22:57)
[2016-12-29] MEDS: COREG PO SCH ×2 (09:34→16:47)
[2016-12-29] MEDS: SORBITRATE PO SCH (09:34)
[2016-12-29] MEDS: ALDACTONE PO SCH ×2 (09:34→21:44)
[2016-12-29] MEDS: XIFAXAN PO SCH ×2 (09:36→21:44)
--- NOTE | 2016-12-29 11:18 | PCM.PROG ---
Attending Provider: ATTENDING PROVIDER: Dr. ANTONETTE TOMPKINS DATE OF SERVICE: 12/29/16 SUBJECTIVE: This 71 year old WHITE/ F was hospitalized 12/27/16. The patient is more awake and alert today. She has had several bowel movements. She states she has abdominal discomfort all over. REVIEW OF SYSTEMS: CONSTITUTIONAL: No fever, no chills. ENDOCRINE: No weight loss or weight gain. HEENT: No sinus drainage, no sore throat. CVS: No angina symptoms. No CHF symptoms. No palpitations. No atypical chest pain for CAD. No shortness of breath. RESPIRATORY: No cough, no hemoptysis. GI: No melena. Abdominal discomfort. No nausea, no vomiting. : No hematuria. No polyuria. SKIN: No rash. No wounds. MUSCULOSKELETAL: No pain. FORENSIC MANAGER: No blackout, no dizziness. No headache. No double vision. PSYCHIATRIC: Not anxious; no depression. No suicidal thoughts. No homicidal thoughts. PHYSICAL EXAMINATION: GENERAL: Lying in bed in no distress. VITAL SIGNS: Temperature 98 F, Pulse 78, Respiratory Rate 18, BP 158/90, Pulse Ox 98% HEENT: Normocephalic, atraumatic. Mucosa is dry, pallor positive. Icterus is present as well as jaundice. NECK: No JVP, no carotid bruit. No lymphadenopathy. CARDIAC: S1, S2, no S3. Pansystolic murmur. LUNGS: Clear to auscultation. ABDOMEN: Abdominal discomfort. Bowel sounds active. No rigidity, guarding or CVA tenderness. EXTREMITIES: No clubbing, cyanosis or edema. NEUROLOGIC: More awake and alert today. LYMPHATIC: No palpable lymph nodes SKIN: Not dry. Intact. MUSCULOSKELETAL: No joint swelling. LAB REVIEW: 12/29/16 05:26 12/29/16 05:26 12/29/16 05:26: WBC 13.26 H D, RBC 3.77 L, Hgb 11.8 L, Hct 34.5 L, MCV 91.5, MCH 31.3 H, MCHC 34.2, RDW Coeff of Dinah 14.5, Plt Count 92 L, Immature Gran % ( Auto) 0.5, Neut % (Auto) 82.1, Lymph % (Auto) 9.2 L, [place] % (Auto) 6.9, Eos % ( Auto) 0.8, Baso % (Auto) 0.5, Immature Gran # (Auto) 0.1, Neut # 10.9 H, Lymph # 1.2, [place] # 0.9, Eos # 0.1, Baso # 0.1, Sodium 145, Potassium 3.6, Chloride 116 H, Carbon Dioxide 20 L, Anion Gap 12.6, BUN 23 H, Creatinine 1.14, Estimated GFR (MDRD) 47.00, BUN/Creatinine Ratio 20.17, Glucose 161 H D, Calcium 8.9, Total Bilirubin 2.40 H, AST 50 H, ALT 33, Alkaline Phosphatase 355 H D, Total Protein 6.1, Albumin 2.1 L, Globulin 4.0, Albumin/Globulin Ratio 0.53 12/28/16 05:25: PT 11.0, INR 1.07 ASSESSMENT: 1. Hepatic encephalopathy, more awake and alert 2. Colitis - questionable diverticulitis per CT scan 3. UTI org negative no growth 4. 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 Coronary artery disease 6. CHF 7. Osteoarthritis 8. DJD spine 9. Depression PLAN: 1. Will have patient up to chair today and see how she does. 2. KUB. 3. If KUB is negative, will advance diet as tolerated. 4. Continue Accu-Cheks q.4hr. Plan and coordination of the patient's care discussed in the presence of Operations Business Partner and nurse. CONDITION: Stable SCRIBED BY: VAHID TEAGUE Step Down Specialist scribed while in presence of service performed by Dr. ANTONETTE TOMPKINS on 12/29/16 ([id number])
--- NOTE | 2016-12-29 12:24 | DI ---
EXAM: Abdomen one view HISTORY: Abdominal pain COMPARISON: CT 12/27/2016 TECHNIQUE: Single view abdomen was performed. FINDINGS: Bowel gas pattern is nonspecific. Mild gaseous distension of the stomach. Air scattered throughout the bowel There is air and stool throught the colon. There are no acute abnormalities of the bones. Degenerative change in the spine. Surgical clips in the pelvic region. Atherosclerosis. IMPRESSION: Nonspecific bowel gas pattern. Mild gaseous distension of the stomach noted.
[2016-12-29] MEDS: ARTIFICIAL TEARS OPTH SOL OP SCH (21:44)
[2016-12-30] MEDS: HUMULIN R SUBCUT PRN ×6 (01:51→21:02)
[2016-12-30] MEDS: FLAGYL 500 MG/100 ML 500 MG in PREMIX 100 ML NS 1 BAG IV SCH ×3 (04:01→20:49)
[2016-12-30] MEDS: ZOSYN 3.375 GM 3.375 GM in SODIUM CHLORIDE 100 ML IV SCH ×3 (05:23→18:12)
[2016-12-30 05:27] LABS: BASOPHILS # (AUTO) 0.1 K/uL (0-0.2); BASOPHILS % (AUTO) 0.3 % (0.0-3.0); EOSINOPHILS # (AUTO) 0.3 K/ul (0.0-0.7); EOSINOPHILS % (AUTO) 1.6 % (0.0-7.0); HEMATOCRIT 35.8 % (37.0-47.0); HEMOGLOBIN 12.4 g/dl (12.0-16.0); IMMATURE GRANULOCYTE % (AUTO) 0.7 % (0.0-5.0); LYMPHOCYTES # (AUTO) 1.7 K/uL (0.60-3.4); LYMPHOCYTES % (AUTO) 9.9 (10.0-50.0); MEAN CORPUSCULAR HEMOGLOBIN 31.2 pg (27.0-31.0); MEAN CORPUSCULAR HGB CONC 34.6 (31.8-35.4); MEAN CORPUSCULAR VOLUME 89.9 fl (81.0-99.0); MONOCYTES % (AUTO) 5.6 (0-10); NEUTROPHILS # (AUTO) 14.4 K/ul (2.0-6.9); NEUTROPHILS % (AUTO) 81.9; PLATELET COUNT 123 10^3/uL (140-440); RED BLOOD COUNT 3.98 10^6/ul (4.20-5.40); WHITE BLOOD COUNT 17.53 K/ul (4.6-10.2)
[2016-12-30] MEDS: LASIX TAB PO SCH (05:50)
[2016-12-30 05:52] LABS: ALBUMIN 2.1 g/dL (3.4-5.0); ALBUMIN/GLOBULIN RATIO 0.49; ANION GAP 11.3; BILIRUBIN,TOTAL 2.16 mg/dL (0.00-1.20); BUN/CREATININE RATIO 25.49; CALCIUM 9.2 mg/dL (8.2-10.2); CREATININE 1.02 mg/dL (0.60-1.30); POTASSIUM 3.3 mmol/L (3.5-5.10); TOTAL PROTEIN 6.4 g/dL (5.8-8.1)
[2016-12-30] MEDS ORDERED: COREG PO STA (06:32)
[2016-12-30] MEDS ORDERED: CARDIZEM INJ IVP STA (08:03)
[2016-12-30] MEDS ORDERED: LASIX IVP STA (08:03)
[2016-12-30] MEDS: COREG PO SCH ×2 (08:46→18:12)
[2016-12-30] MEDS: SORBITRATE PO SCH (08:46)
[2016-12-30] MEDS: XIFAXAN PO SCH ×2 (08:47→20:49)
[2016-12-30] MEDS: ALDACTONE PO SCH ×2 (08:47→20:49)
--- NOTE | 2016-12-30 11:51 | CT ---
EXAM: CT THORAX HISTORY: Cough, fever, tachycardia. TECHNIQUE: CT thorax without intravenous contrast. 5-mm axial sections. Coronal and sagittal re-fo rmations. COMPARISON: 12/27/2016 FINDINGS: Normal heart size. Trace pericardial fluid. Relatively severe vascular calcifications consistent w ith atherosclerotic disease. No aneurysmal caliber of the thoracic aorta. Calcified masses are see n within the mediastinum suggesting old granulomatous disease. There is a lobular enlarged thyroid gland again noted. Esophageal wall thickening at the subcarinal level and inferiorly may be related to inflammation, less likely neoplasia although not excluded. There is a tiny left pleural effusion. There are small calcified nodules within the lung parenchyma also consistent with old granulomatous disease. No active congestive heart failure, consolidated pn eumonia or pneumothorax. The bones reveal degenerative disc and facet disease of the spine with osteophytic spurring and gene ralized demineralization. Incidental note of advanced hepatic cirrhosis and signs of portal venous h ypertension. Upper abdominal ascites is small volume. IMPRESSION: 1. Normal heart size. No active congestive heart failure, consolidated pneumonia or vascular conge stion. There is a tiny left pleural effusion which is minimally increased since previous. 2. Severe atherosclerosis. 3. Old granulomatous disease. 4. Enlarged lobular thyroid gland again noted. 5. Thickening of the lower esophagus may be inflammatory in nature. 6. Advanced hepatic cirrhosis with upper abdominal ascites and other evidence of portal venous hype rtension.
[2016-12-30] MEDS: CALMOSEPTINE OINTMENT TP SCH ×3 (14:50→20:48)
[2016-12-30] MEDS: ARTIFICIAL TEARS OPTH SOL OP SCH (20:49)
[2016-12-31] MEDS: ZOSYN 3.375 GM 3.375 GM in SODIUM CHLORIDE 100 ML IV SCH ×5 (00:07→23:06)
[2016-12-31] MEDS: HUMULIN R SUBCUT PRN ×6 (02:24→21:19)
[2016-12-31] MEDS: FLAGYL 500 MG/100 ML 500 MG in PREMIX 100 ML NS 1 BAG IV SCH ×3 (04:09→20:19)
[2016-12-31 05:36] LABS: BASOPHILS % (AUTO) 0.2 % (0.0-3.0); EOSINOPHILS # (AUTO) 0.2 K/ul (0.0-0.7); EOSINOPHILS % (AUTO) 0.8 % (0.0-7.0); HEMATOCRIT 33.5 % (37.0-47.0); IMMATURE GRANULOCYTE % (AUTO) 0.7 % (0.0-5.0); LYMPHOCYTES # (AUTO) 1.5 K/uL (0.60-3.4); LYMPHOCYTES % (AUTO) 7.5 (10.0-50.0); MEAN CORPUSCULAR HEMOGLOBIN 31.5 pg (27.0-31.0); MEAN CORPUSCULAR HGB CONC 35.8 (31.8-35.4); MEAN CORPUSCULAR VOLUME 87.9 fl (81.0-99.0); MONOCYTES # (AUTO) 1.1 K/uL (0.4-2.0); MONOCYTES % (AUTO) 5.3 (0-10); NEUTROPHILS # (AUTO) 17.4 K/ul (2.0-6.9); NEUTROPHILS % (AUTO) 85.5; PLATELET COUNT 144 10^3/uL (140-440); RED BLOOD COUNT 3.81 10^6/ul (4.20-5.40); WHITE BLOOD COUNT 20.35 K/ul (4.6-10.2)
[2016-12-31 06:11] LABS: ALBUMIN 1.8 g/dL (3.4-5.0); ALBUMIN/GLOBULIN RATIO 0.47; ANION GAP 9.9; BILIRUBIN,TOTAL 1.54 mg/dL (0.00-1.20); BUN/CREATININE RATIO 28.57; CALCIUM 8.8 mg/dL (8.2-10.2); CREATININE 0.91 mg/dL (0.60-1.30); POTASSIUM 2.9 mmol/L (3.5-5.10); TOTAL PROTEIN 5.6 g/dL (5.8-8.1)
[2016-12-31] MEDS: LASIX TAB PO SCH (06:19)
[2016-12-31] MEDS: COREG PO SCH ×2 (08:26→16:34)
[2016-12-31] MEDS: ALDACTONE PO SCH ×2 (08:26→20:19)
[2016-12-31] MEDS: SORBITRATE PO SCH (08:27)
[2016-12-31] MEDS: XIFAXAN PO SCH ×2 (08:27→20:19)
[2016-12-31] MEDS ORDERED: ZOFRAN 4 MG/2 ML IVP STA (09:18)
[2016-12-31] MEDS: CALMOSEPTINE OINTMENT TP SCH ×4 (09:40→20:19)
[2016-12-31] MEDS ORDERED: K-DUR PO STA (15:25)
[2016-12-31] MEDS ORDERED: CITRATE OF MAGNESIA ONE (16:39)
[2016-12-31] MEDS: ARTIFICIAL TEARS OPTH SOL OP SCH (20:19)
[2017-01-01] MEDS: HUMULIN R SUBCUT PRN ×6 (02:03→21:44)
[2017-01-01] MEDS: FLAGYL 500 MG/100 ML 500 MG in PREMIX 100 ML NS 1 BAG IV SCH ×3 (04:00→20:49)
[2017-01-01] MEDS: ZOSYN 3.375 GM 3.375 GM in SODIUM CHLORIDE 100 ML IV SCH ×4 (05:00→23:08)
[2017-01-01 05:12] LABS: BASOPHILS % (AUTO) 0.2 % (0.0-3.0); EOSINOPHILS # (AUTO) 0.2 K/ul (0.0-0.7); EOSINOPHILS % (AUTO) 0.9 % (0.0-7.0); HEMATOCRIT 34.7 % (37.0-47.0); HEMOGLOBIN 12.4 g/dl (12.0-16.0); IMMATURE GRANULOCYTE % (AUTO) 1.1 % (0.0-5.0); LYMPHOCYTES # (AUTO) 2.1 K/uL (0.60-3.4); LYMPHOCYTES % (AUTO) 8.7 (10.0-50.0); MEAN CORPUSCULAR HEMOGLOBIN 31.1 pg (27.0-31.0); MEAN CORPUSCULAR HGB CONC 35.7 (31.8-35.4); MONOCYTES # (AUTO) 1.7 K/uL (0.4-2.0); MONOCYTES % (AUTO) 7.3 (0-10); NEUTROPHILS # (AUTO) 19.3 K/ul (2.0-6.9); NEUTROPHILS % (AUTO) 81.8; PLATELET COUNT 201 10^3/uL (140-440); RED BLOOD COUNT 3.99 10^6/ul (4.20-5.40); WHITE BLOOD COUNT 23.57 K/ul (4.6-10.2)
[2017-01-01] MEDS: LASIX TAB PO SCH (05:31)
[2017-01-01 05:38] LABS: ALBUMIN 1.8 g/dL (3.4-5.0); ALBUMIN/GLOBULIN RATIO 0.47; ANION GAP 12.1; BILIRUBIN,TOTAL 1.41 mg/dL (0.00-1.20); BUN/CREATININE RATIO 31.13; CALCIUM 9.1 mg/dL (8.2-10.2); CREATININE 1.06 mg/dL (0.60-1.30); POTASSIUM 3.1 mmol/L (3.5-5.10); TOTAL PROTEIN 5.6 g/dL (5.8-8.1)
[2017-01-01] MEDS: XIFAXAN PO SCH ×2 (08:44→20:50)
[2017-01-01] MEDS: SORBITRATE PO SCH (08:45)
[2017-01-01] MEDS: COREG PO SCH ×2 (08:45→17:31)
[2017-01-01] MEDS: ALDACTONE PO SCH ×2 (08:45→20:49)
[2017-01-01] MEDS: CALMOSEPTINE OINTMENT TP SCH ×4 (08:51→20:50)
[2017-01-01 09:42] LABS: OCCULT BLOOD INTERNAL QC 1 INTERNAL QC VALID; OCCULT BLOOD SAMPLE 1 POSITIVE (NEGATIVE)
[2017-01-01 09:43] LABS: OCCULT BLOOD INTERNAL QC 2 INTERNAL QC VALID; OCCULT BLOOD SAMPLE 2 NO SPECIMEN RECEIVED (NEGATIVE); OCCULT BLOOD SAMPLE 3 NO SPECIMEN RECEIVED (NEGATIVE)
[2017-01-01 09:44] LABS: OCCULT BLOOD INTERNAL QC 3 INTERNAL QC VALID
[2017-01-01] MEDS ORDERED: K-DUR PO STA (11:12)
[2017-01-01] MEDS: PROTONIX PO SCH ×2 (11:34→17:36)
[2017-01-01 12:39] LABS: HEMATOCRIT 35.4 % (37.0-47.0); HEMOGLOBIN 12.8 g/dl (12.0-16.0)
--- NOTE | 2017-01-01 13:11 | CT ---
Exam: CT abdomen and pelvis without IV contrast. Clinical indication: Abdominal pain with hematochezia. TECHNIQUE: Axial unenhanced CT images of the abdomen and pelvis were obtained followed by coronal a nd sagittal reformats. Comparison is made to the prior study dated 12/27/2016. Findings: There is a small amount of ascites. There is no free intra-abdominal gas. Note is again made of hepatic morphology consistent with cirrhosis. There are incidental hepatic an d splenic calcifications consistent with old healed granulomatous disease. There is some central co nfluent hepatic fibrosis. The remainder of the liver is unremarkable. There has been a prior cholecystectomy. There is some mild adrenal hyperplasia. The pancreas, spleen, and kidneys are grossly unremarkable, given the limitations of an unenhanced C T. The kidneys are grossly unremarkable, given the limitations of an unenhanced CT. There is some retroperitoneal varices. There is extensive aortoiliac atherosclerotic vascular calcifications. There has been a prior hysterectomy. There is a Douglas catheter within the urinary bladder. There is colonic diverticulosis, without obvious evidence of diverticulitis. There is a small hiata l hernia. The remainder the visualized portions of the bowel are unremarkable. There are small bilateral pleural effusions slightly greater on the left than right. There are bibasilar areas of atelectasis. There are extensive coronary artery calcifications. The remainder the visualized portions of the lo wer thorax are within normal limits. There is a minimal grade 1 anterolisthesis of L4 on L5 secondary to degenerative changes. There is multilevel lumbar degenerative disc and facet disease. Impression: 1. Cirrhosis. 2. Small amount of ascites and not a large enough for paracentesis. 3. Colonic diverticulosis, without evidence of diverticulitis. 4. Small hiatal hernia. 5. Extensive coronary and atherosclerotic vascular calcifications.
[2017-01-01] MEDS: ZOFRAN 4 MG/2 ML IVP PRN (13:56)
[2017-01-01] MEDS ORDERED: PHENERGAN 25 MG/ML VIAL 12.5 MG in SODIUM CHLORIDE 50 ML IV PRN (15:11)
[2017-01-01] MEDS ORDERED: PHENERGAN 25 MG/ML VIAL ONE (15:13)
[2017-01-01] MEDS: GI COCKTAIL PO SCH ×2 (17:56→20:49)
[2017-01-01] MEDS: DEXTROSE 5%-NS IV SOLUTION 1,000 ML IV SCH (17:56)
[2017-01-01] MEDS: DEMEROL 25 MG/ML SYRINGE IVP PRN (17:57)
[2017-01-01 18:07] LABS: AMYLASE 19 U/L (25-115); LIPASE 69 U/L (8-78)
[2017-01-01] MEDS: ARTIFICIAL TEARS OPTH SOL OP SCH (20:49)
[2017-01-02 01:10] LABS: BASOPHILS % (AUTO) 0.2 % (0.0-3.0); EOSINOPHILS % (AUTO) 0.1 % (0.0-7.0); HEMATOCRIT 32.8 % (37.0-47.0); HEMOGLOBIN 11.7 g/dl (12.0-16.0); LYMPHOCYTES # (AUTO) 1.9 K/uL (0.60-3.4); LYMPHOCYTES % (AUTO) 8.2 (10.0-50.0); MEAN CORPUSCULAR HEMOGLOBIN 31.5 pg (27.0-31.0); MEAN CORPUSCULAR HGB CONC 35.7 (31.8-35.4); MEAN CORPUSCULAR VOLUME 88.2 fl (81.0-99.0); MONOCYTES # (AUTO) 1.5 K/uL (0.4-2.0); MONOCYTES % (AUTO) 6.6 (0-10); NEUTROPHILS # (AUTO) 19.1 K/ul (2.0-6.9); NEUTROPHILS % (AUTO) 82.9; PLATELET COUNT 204 10^3/uL (140-440); RED BLOOD COUNT 3.72 10^6/ul (4.20-5.40); WHITE BLOOD COUNT 23.06 K/ul (4.6-10.2)
[2017-01-02] MEDS: HUMULIN R SUBCUT PRN ×6 (01:34→22:34)
[2017-01-02 02:10] LABS: ALBUMIN 1.7 g/dL (3.4-5.0); ALBUMIN/GLOBULIN RATIO 0.49; BILIRUBIN,TOTAL 1.45 mg/dL (0.00-1.20); BUN/CREATININE RATIO 40.45; CALCIUM 8.8 mg/dL (8.2-10.2); CREATININE 1.31 mg/dL (0.60-1.30); TOTAL PROTEIN 5.2 g/dL (5.8-8.1)
[2017-01-02] MEDS: FLAGYL 500 MG/100 ML 500 MG in PREMIX 100 ML NS 1 BAG IV SCH ×3 (04:21→22:31)
[2017-01-02] MEDS: ZOSYN 3.375 GM 3.375 GM in SODIUM CHLORIDE 100 ML IV SCH (05:46)
[2017-01-02] MEDS: LASIX TAB PO SCH (06:00)
[2017-01-02] MEDS: PROTONIX PO SCH ×2 (06:00→17:18)
--- NOTE | 2017-01-02 09:06 | PN ---
DATE OF SERVICE: 12/31/16 SUBJECTIVE: The patient was hospitalized with the Hepatic encephalopathy, complains of still having some abdominal pain and nausea. She did not eat much. REVIEW OF SYSTEMS: CONSTITUTIONAL: No fever, no chills. HEENT: Normal. ENDOCRINE: No weight gain, no weight loss. CVS: No angina symptoms. No CHF symptoms. No palpitations. No atypical chest pain for CAD. No shortness of breath. No PND, no orthopnea. RESPIRATORY: No cough, no hemoptysis. GI: No nausea, no vomiting. No abdominal pain. : No hematuria. No polyuria. MUSCULOSKELETAL:. No joint swelling. PSYCHIATRIC: Not anxious. No depression. No suicidal thoughts. No homicidal thoughts. SKIN: Intact. No rash. PHYSICAL EXAMINATION: V/S: Blood pressure 132/76, respiratory rate 18, heart rate 82, temperature 97.7. HEENT: Normocephalic, atraumatic. Mucosa dry. Pallor positive. No icterus. NECK: Supple. No JVD, no carotid bruit. No lymphadenopathy. LUNGS: Decreased breath sounds but basilar crackles. No rales or rhonchi. HEART: S1, S2 normal. No S3. Systolic murmur, gallop or regurgitation. ABDOMEN: Soft, Discomfort all over. Bowel sounds sluggish. No rigidity. No rebound or guarding. No CVA tenderness. EXTREMITIES: No clubbing, cyanosis or pedal edema. MUSCULOSKELETAL: No joint swelling. NEUROLOGIC: Awake, alert, oriented times three. No focal deficit. LYMPHATIC: No lymph nodes palpable. SKIN: Intact. LABS: WBC 20.35, hgb 12.0, hct 33.5, plt count 144, sodium 138, potassium 2.9,. chloride 109, bicarb 22, BUN 26, creatinine 0.91. ASSESSMENT: 1. Hypokalemia 2. Hepatic encephalopathy 3. Colitis 4. Enteritis 5. Alcoholic liver cirrhosis 6. Congestive heart disease 7. Angina, stable 8. Atherosclerotic vascular disease PLAN: 1. Potassium 40mg 2. Will check Ammonia level 3. Continue Zosyn 4. Daily I&O's Will follow the patient in daily rounds. TIME SPENT: More than 30 minutes MTDD
[2017-01-02] MEDS: ALDACTONE PO SCH ×2 (09:35→21:19)
[2017-01-02] MEDS: AZACTAM 1 GM in SODIUM CHLORIDE 50 ML IV SCH ×2 (09:36→21:17)
[2017-01-02] MEDS: GI COCKTAIL PO SCH ×4 (09:37→21:19)
[2017-01-02] MEDS: COREG PO SCH ×2 (09:37→17:18)
[2017-01-02] MEDS: CALMOSEPTINE OINTMENT TP SCH ×4 (09:37→21:19)
[2017-01-02] MEDS: SORBITRATE PO SCH (09:38)
[2017-01-02 12:37] LABS: HEMATOCRIT 34.9 % (37.0-47.0); HEMOGLOBIN 11.5 g/dl (12.0-16.0)
--- NOTE | 2017-01-02 12:54 | PCM.PROG ---
Attending Provider: ATTENDING PROVIDER: Dr. ANTONETTE TOMPKINS DATE OF SERVICE: 01/02/17 SUBJECTIVE: This 71 year old WHITE/ F was hospitalized 12/27/16 with abdominal pain since Monday. The patient had black colored stool positive for occult blood. White count went up to 23,000. CT scan of the abdomen showed mild ascites. No focus of inflammation. REVIEW OF SYSTEMS: CONSTITUTIONAL: No fever, no chills. ENDOCRINE: No weight loss or weight gain. HEENT: No sinus drainage, no sore throat. CVS: No angina symptoms. No CHF symptoms. No palpitations. No atypical chest pain for CAD. No shortness of breath. RESPIRATORY: No cough, no hemoptysis. GI: No melena. Abdominal discomfort and tenderness. No nausea, no vomiting. : No hematuria. No polyuria. SKIN: No rash. No wounds. MUSCULOSKELETAL: No pain. OIL OPERATOR: No blackout, no dizziness. No headache. No double vision. PSYCHIATRIC: Not anxious; no depression. No suicidal thoughts. No homicidal thoughts. PHYSICAL EXAMINATION: GENERAL: Lying in bed in no distress. VITAL SIGNS: Temperature 96.2 F, Pulse 91, Respiratory Rate 16, BP 129/75, Pulse Ox 99% HEENT: Normocephalic, atraumatic. Mucosa is dry, pallor positive. NECK: No JVP, no carotid bruit. No lymphadenopathy. CARDIAC: S1, S2, no S3. No murmur, gallop or regurgitation. LUNGS: Clear to auscultation. ABDOMEN: Soft. Discomfort with abdominal tenderness all over. Bowel sounds active. No rigidity, guarding or CVA tenderness. EXTREMITIES: No clubbing, cyanosis or edema. NEUROLOGIC: Awake, alert and oriented x3. LYMPHATIC: No palpable lymph nodes SKIN: Not dry. Intact. MUSCULOSKELETAL: No joint swelling. LAB REVIEW: 01/02/17 01:05 01/02/17 01:05 01/02/17 01:05: WBC 23.06 H, RBC 3.72 L, Hgb 11.7 L, Hct 32.8 L, MCV 88.2, MCH 31.5 H, MCHC 35.7 H, RDW Coeff of Dinah 14.5, Plt Count 204, Immature Gran % (Auto ) 2.0, Neut % (Auto) 82.9, Lymph % (Auto) 8.2 L, Delta % (Auto) 6.6, Eos % (Auto ) 0.1, Baso % (Auto) 0.2, Immature Gran # (Auto) 0.5, Neut # 19.1 H, Lymph # 1.9 , Delta # 1.5, Eos # 0.0, Baso # 0.0, Sodium 136, Potassium 4.0, Chloride 108 H, Carbon Dioxide 19 L, Anion Gap 13.0, BUN 53 H, Creatinine 1.31 H, Estimated GFR (MDRD) 40.00, BUN/Creatinine Ratio 40.45, Glucose 253 H, Calcium 8.8, Total Bilirubin 1.45 H, AST 40 H, ALT 32, Alkaline Phosphatase 284 H, Total Protein 5.2 L, Albumin 1.7 L, Globulin 3.5, Albumin/Globulin Ratio 0.49 01/01/17 12:30: Hgb 12.8, Hct 35.4 L 01/01/17 08:55: Stl Occult Blood (IFOB) Positive, Stool Occult Blood #2 No specimen received, Stool Occult Blood #3 No specimen received 01/01/17 05:00: Amylase 19 L, Lipase 69 ASSESSMENT: 1. Elevated white count secondary to spontaneous bacterial peritonitis versus colitis 2. Acute on chronic renal failure 3. Hepatic encephalopathy, more awake and alert 4. Colitis - questionable diverticulitis per CT scan 5. UTI org negative no growth 6. 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 Coronary artery disease 6. CHF 7. Osteoarthritis 8. DJD spine 9. Depression PLAN: 1. Azactam 1 gm q.12hr 2. Carafate 3. Stop Zosyn 4. IV fluids 30 mL/hr 5. Possible swing bed Plan and coordination of the patient's care discussed in the presence of Senior Mobile Developer and nurse. CONDITION: Stable SCRIBED BY: VAHID TEAGUE, Surtass Analyst scribed while in presence of service performed by Dr. ANTONETTE TOMPKINS on 01/02/17 ([id number])
--- NOTE | 2017-01-02 13:56 | PN ---
DATE OF SERVICE: 01/01/17 SUBJECTIVE: The patient complains about more abdominal pain and not able to eat today. Extra dose of pain medications were given. REVIEW OF SYSTEMS: CONSTITUTIONAL: No fever, no chills. HEENT: Normal. ENDOCRINE: No weight gain, no weight loss. CVS: No angina symptoms. No CHF symptoms. No palpitations. No atypical chest pain for CAD. No shortness of breath. No PND, no orthopnea. RESPIRATORY: No cough, no hemoptysis. GI: No nausea, no vomiting. No abdominal pain. : No hematuria. No polyuria. MUSCULOSKELETAL:. No joint swelling. PSYCHIATRIC: Not anxious. No depression. No suicidal thoughts. No homicidal thoughts. SKIN: Intact. No rash. PHYSICAL EXAMINATION: V/S: Blood pressure 105/70, respiratory rate 20, heart rate 90, temperature 98.5. HEENT: Normocephalic, atraumatic. Mucosa dry. NECK: Supple. No JVD, no carotid bruit. No lymphadenopathy. LUNGS: Decreased and clear to auscultation. No rales or rhonchi. HEART: S1, S2 normal. No S3. systolic murmur, gallop or regurgitation. ABDOMEN: Soft, tender all over. Bowel sounds active. No rigidity. No rebound or guarding. No CVA tenderness. EXTREMITIES: No clubbing, cyanosis or pedal edema. MUSCULOSKELETAL: No joint swelling. NEUROLOGIC: Awake, alert, oriented times three. No focal deficit. LYMPHATIC: No lymph nodes palpable. SKIN: Intact. LABS: Sodium 136, potassium 3.1, Chloride 106, bicarb 21, BUN 33, creatinine 1.06, WBC 23,000, hgb 12.4, hct 34.7, plt count 201. ASSESSMENT: 1. Abdominal pain, rule out colitis or enteritis will get one more CAT scan today 2. Hepatic encephalopathy which is resolved 3. Hypokalemia 4. Alcohol liver cirrhosis 5. CHF 6. Angina PLAN: 1. CT of the abdomen and pelvis 2. Potassium 40mg PO 3. Demerol 25mg Q 8 hours 4. D5 normal IV fluids 5. Daily I&O's TIME SPENT: More than 30 minutes MTDD
[2017-01-02] MEDS: ARTIFICIAL TEARS OPTH SOL OP SCH (21:18)
[2017-01-02] MEDS: DEMEROL 25 MG/ML SYRINGE IVP PRN (23:28)
[2017-01-03 00:59] LABS: BASOPHILS # (AUTO) 0.1 K/uL (0-0.2); BASOPHILS % (AUTO) 0.2 % (0.0-3.0); EOSINOPHILS # (AUTO) 0.1 K/ul (0.0-0.7); EOSINOPHILS % (AUTO) 0.2 % (0.0-7.0); HEMOGLOBIN 9.8 g/dl (12.0-16.0); IMMATURE GRANULOCYTE % (AUTO) 3.3 % (0.0-5.0); LYMPHOCYTES # (AUTO) 2.3 K/uL (0.60-3.4); LYMPHOCYTES % (AUTO) 8.1 (10.0-50.0); MEAN CORPUSCULAR HEMOGLOBIN 31.6 pg (27.0-31.0); MEAN CORPUSCULAR VOLUME 90.3 fl (81.0-99.0); MONOCYTES # (AUTO) 1.8 K/uL (0.4-2.0); MONOCYTES % (AUTO) 6.5 (0-10); NEUTROPHILS # (AUTO) 22.8 K/ul (2.0-6.9); NEUTROPHILS % (AUTO) 81.7; PLATELET COUNT 195 10^3/uL (140-440); WHITE BLOOD COUNT 27.92 K/ul (4.6-10.2)
[2017-01-03] MEDS: HUMULIN R SUBCUT PRN ×5 (02:12→22:41)
[2017-01-03 02:14] LABS: ALBUMIN 1.6 g/dL (3.4-5.0); ALBUMIN/GLOBULIN RATIO 0.5; ANION GAP 12.8; BILIRUBIN,TOTAL 0.96 mg/dL (0.00-1.20); BUN/CREATININE RATIO 37.78; CALCIUM 8.5 mg/dL (8.2-10.2); CREATININE 2.17 mg/dL (0.60-1.30); POTASSIUM 3.8 mmol/L (3.5-5.10); TOTAL PROTEIN 4.8 g/dL (5.8-8.1)
[2017-01-03] MEDS: FLAGYL 500 MG/100 ML 500 MG in PREMIX 100 ML NS 1 BAG IV SCH (04:10)
[2017-01-03] MEDS: PROTONIX PO SCH (05:59)
[2017-01-03] MEDS: LASIX TAB PO SCH (05:59)
[2017-01-03] MEDS ORDERED: LASIX TAB PO SCH (06:15)
[2017-01-03] MEDS ORDERED: SODIUM CHLORIDE 250 ML IV STA (08:31)
[2017-01-03] MEDS: CALMOSEPTINE OINTMENT TP SCH ×4 (09:57→20:22)
[2017-01-03] MEDS: GI COCKTAIL PO SCH ×4 (09:57→20:21)
[2017-01-03] MEDS: SORBITRATE PO SCH (09:58)
[2017-01-03] MEDS: ALDACTONE PO SCH (09:58)
[2017-01-03] MEDS: COREG PO SCH (09:59)
--- NOTE | 2017-01-03 10:15 | PCM.PROG ---
Attending Provider: ATTENDING PROVIDER: Dr. ANTONETTE TOMPKINS DATE OF SERVICE: 01/03/17 SUBJECTIVE: This 71 year old WHITE/ F was hospitalized 12/27/16. The patient is eating better on liquid diet, 100%. Urine output is scanty 30 mL overnight. BUN and creatinine have increased to 82/2.12. REVIEW OF SYSTEMS: CONSTITUTIONAL: No fever, no chills. ENDOCRINE: No weight loss or weight gain. HEENT: No sinus drainage, no sore throat. CVS: No angina symptoms. No CHF symptoms. No palpitations. No atypical chest pain for CAD. No shortness of breath. RESPIRATORY: No cough, no hemoptysis. GI: No melena. Abdominal pain and discomfort. No nausea, no vomiting. : No hematuria. No polyuria. SKIN: No rash. No wounds. MUSCULOSKELETAL: No pain. BASTER HAND: No blackout, no dizziness. No headache. No double vision. PSYCHIATRIC: Not anxious; no depression. No suicidal thoughts. No homicidal thoughts. PHYSICAL EXAMINATION: GENERAL: Lying in bed in no distress. VITAL SIGNS: Temperature 97.7 F, Pulse 70, Respiratory Rate 20, BP 104/72, Pulse Ox 95% HEENT: Normocephalic, atraumatic. Mucosa is dry, pallor positive. NECK: No JVP, no carotid bruit. No lymphadenopathy. CARDIAC: S1, S2, no S3. ysstolic murmur No murmur, gallop or regurgitation. LUNGS: Clear to auscultation. ABDOMEN: Soft No rigidity, guarding or CVA tenderness. sluggish bs tenderness all over EXTREMITIES: No clubbing, cyanosis or edema. NEUROLOGIC: Awake, alert, oriented to person. LYMPHATIC: No palpable lymph nodes SKIN: Not dry. Intact. MUSCULOSKELETAL: No joint swelling. LAB REVIEW: 01/03/17 00:57 01/03/17 00:57 01/03/17 00:57: WBC 27.92 H, RBC 3.10 L, Hgb 9.8 L, Hct 28.0 L D, MCV 90.3, MCH 31.6 H, MCHC 35.0, RDW Coeff of Dinah 15.7 H, Plt Count 195, Immature Gran % (Auto ) 3.3, Neut % (Auto) 81.7, Lymph % (Auto) 8.1 L, [place] % (Auto) 6.5, Eos % (Auto ) 0.2, Baso % (Auto) 0.2, Immature Gran # (Auto) 0.9, Neut # 22.8 H, Lymph # 2.3 , [place] # 1.8, Eos # 0.1, Baso # 0.1, Sodium 132 L, Potassium 3.8, Chloride 109 H , Carbon Dioxide 14 L, Anion Gap 12.8, BUN 82 H* D, Creatinine 2.17 H D, Estimated GFR (MDRD) 22.00, BUN/Creatinine Ratio 37.78, Glucose 412 H D, Calcium 8.5, Total Bilirubin 0.96, AST 30, ALT 27, Alkaline Phosphatase 245 H D , Total Protein 4.8 L, Albumin 1.6 L, Globulin 3.2, Albumin/Globulin Ratio 0.50 01/02/17 12:30: Hgb 11.5 L, Hct 34.9 L 12/30/16 05:05: Free T3 pg/mL 2.0 ASSESSMENT: 1. Elevated white count secondary to spontaneous bacterial peritonitis versus colitis 2. Acute on chronic renal failure secondary to dehydration vs upper GI bleed 3. Hepatic encephalopathy, more awake and alert 4. Colitis - questionable diverticulitis per CT scan 5. UTI org negative no growth 6. 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 Coronary artery disease 6. CHF 7. Osteoarthritis 8. DJD spine 9. Depression PLAN: 1. Carafate 2. CMP by 4 p.m. today 3. IV fluids 250 bolus then 50 mL/hr an hour NS 4. Urinalysis 5. Stop Lasix 6. Daily I & O 7. Dietary consult 8. Continue Azactam 9. Stop Flagyl Plan and coordination of the patient's care discussed in the presence of Hog Pusher and nurse. CONDITION: Stable SCRIBED BY: VAHID TEAGUE, Dietitian Teacher scribed while in presence of service performed by Dr. ANTONETTE TOMPKINS on 01/03/17 ([id number])
[2017-01-03] MEDS: SODIUM CHLORIDE 1,000 ML IV SCH (11:12)
[2017-01-03] MEDS: DEMEROL 25 MG/ML SYRINGE IVP PRN (11:17)
[2017-01-03] MEDS: DEXTROSE 5%-NS IV SOLUTION 1,000 ML IV SCH (11:21)
[2017-01-03] MEDS: CARAFATE PO SCH ×3 (11:58→20:21)
[2017-01-03] MEDS: AZACTAM 1 GM in SODIUM CHLORIDE 50 ML IV SCH ×2 (11:58→20:17)
[2017-01-03] MEDS ORDERED: SODIUM CHLORIDE 250 ML IV ONE (12:02)
[2017-01-03 12:38] LABS: HEMATOCRIT 22.4 % (37.0-47.0); HEMOGLOBIN 7.7 g/dl (12.0-16.0)
[2017-01-03 15:54] LABS: PROTHROMBIN TIME 20.7 SEC (9.3-11.0)
[2017-01-03] MEDS: PROTONIX IV 80 MG in SODIUM CHLORIDE 100 ML IV SCH (16:00)
[2017-01-03 16:04] LABS: ALBUMIN 1.3 g/dL (3.4-5.0); ALBUMIN/GLOBULIN RATIO 0.54; ANION GAP 11.7; BILIRUBIN,TOTAL 0.81 mg/dL (0.00-1.20); BUN/CREATININE RATIO 37.19; CALCIUM 7.7 mg/dL (8.2-10.2); CREATININE 2.42 mg/dL (0.60-1.30); POTASSIUM 3.7 mmol/L (3.5-5.10); TOTAL PROTEIN 3.7 g/dL (5.8-8.1)
[2017-01-03 16:51] LABS: BILIRUBIN,URINE 1+ (NEGATIVE); KETONES,URINE Trace (NEGATIVE); LEUKOCYTE ESTERASE ,URINE 1+ (NEGATIVE); NITRITE,URINE Negative (NEGATIVE); PH,URINE 5.5 (5-9); PROTEIN,URINE 1+ (NEGATIVE); URINE, BLOOD 2+ (NEGATIVE)
[2017-01-03 16:52] LABS: ADD URINE MICROSCOPIC YES
[2017-01-03 17:01] LABS: BACTERIA,URINE TRACE (NOT PRESENT)
[2017-01-03] MEDS: ARTIFICIAL TEARS OPTH SOL OP SCH (20:21)
[2017-01-04] MEDS: PROTONIX IV 80 MG in SODIUM CHLORIDE 100 ML IV SCH ×4 (01:23→18:51)
[2017-01-04] MEDS: SODIUM CHLORIDE 1,000 ML IV SCH ×2 (02:12→16:24)
[2017-01-04] MEDS: HUMULIN R SUBCUT PRN ×6 (02:32→22:37)
[2017-01-04 04:08] LABS: BASOPHILS # (AUTO) 0.1 K/uL (0-0.2); BASOPHILS % (AUTO) 0.3 % (0.0-3.0); EOSINOPHILS # (AUTO) 0.1 K/ul (0.0-0.7); EOSINOPHILS % (AUTO) 0.2 % (0.0-7.0); HEMATOCRIT 32.3 % (37.0-47.0); HEMOGLOBIN 11.4 g/dl (12.0-16.0); IMMATURE GRANULOCYTE % (AUTO) 3.9 % (0.0-5.0); LYMPHOCYTES # (AUTO) 2.6 K/uL (0.60-3.4); LYMPHOCYTES % (AUTO) 8.5 (10.0-50.0); MEAN CORPUSCULAR HEMOGLOBIN 31.1 pg (27.0-31.0); MEAN CORPUSCULAR HGB CONC 35.3 (31.8-35.4); MEAN CORPUSCULAR VOLUME 88.3 fl (81.0-99.0); MONOCYTES # (AUTO) 1.9 K/uL (0.4-2.0); MONOCYTES % (AUTO) 6.2 (0-10); NEUTROPHILS # (AUTO) 24.4 K/ul (2.0-6.9); NEUTROPHILS % (AUTO) 80.9; PLATELET COUNT 158 10^3/uL (140-440); RED BLOOD COUNT 3.66 10^6/ul (4.20-5.40)
[2017-01-04 04:52] LABS: ALBUMIN 1.4 g/dL (3.4-5.0); ALBUMIN/GLOBULIN RATIO 0.56; ANION GAP 11.9; BILIRUBIN,TOTAL 1.69 mg/dL (0.00-1.20); BUN/CREATININE RATIO 34.92; CALCIUM 7.9 mg/dL (8.2-10.2); CREATININE 2.72 mg/dL (0.60-1.30); POTASSIUM 3.9 mmol/L (3.5-5.10); TOTAL PROTEIN 3.9 g/dL (5.8-8.1)
[2017-01-04] MEDS: CARAFATE PO SCH ×4 (05:33→20:51)
[2017-01-04] MEDS ORDERED: LASIX TAB PO SCH (06:30)
[2017-01-04] MEDS ORDERED: SODIUM CHLORIDE 250 ML IV STA ×3 (08:06→15:03)
[2017-01-04] MEDS: GI COCKTAIL PO SCH ×4 (08:34→20:52)
[2017-01-04] MEDS: AZACTAM 1 GM in SODIUM CHLORIDE 50 ML IV SCH (08:34)
[2017-01-04] MEDS ORDERED: SODIUM CHLORIDE 250 ML IV ONE ×2 (08:45→15:15)
[2017-01-04] MEDS: CALMOSEPTINE OINTMENT TP SCH ×4 (08:54→21:46)
--- NOTE | 2017-01-04 10:45 | PCM.PROG ---
Attending Provider: ATTENDING PROVIDER: Dr. ANTONETTE TOMPKINS DATE OF SERVICE: 01/04/17 SUBJECTIVE: This 71 year old WHITE/ F was hospitalized 12/27/16. The patient is complaining of abdominal pain. She states she is very thirsty so will give ice chips. The patient received 3 units of blood; hemoglobin 7.7 with active lower GI bleed. The patient is still having jelly- consistency, bright red colored stools. The case was discussed in detail with the patient's Shelbie SMITH. The patient is still hypotensive, 80 systolic. Urine output was 25 cc overnight. The patient is moaning about abdominal pain and discomfort and wants to get up and sit. REVIEW OF SYSTEMS: CONSTITUTIONAL: No fever, no chills. ENDOCRINE: No weight loss or weight gain. HEENT: No sinus drainage, no sore throat. CVS: No angina symptoms. No CHF symptoms. No palpitations. No atypical chest pain for CAD. No shortness of breath. RESPIRATORY: No cough, no hemoptysis. GI: Abdominal pain and discomfort. Active GI bleeding. No nausea, no vomiting. : No hematuria. No polyuria. SKIN: No rash. MUSCULOSKELETAL: No pain. PARTNER MARKETING MANAGER: No blackout, no dizziness. No headache. No double vision. PSYCHIATRIC: Not anxious; no depression. No suicidal thoughts. No homicidal thoughts. PHYSICAL EXAMINATION: GENERAL: Lying in bed in no distress. VITAL SIGNS: Temperature 96.7 F, Pulse 82, Respiratory Rate 17, BP 82/50, Pulse Ox 100% HEENT: Normocephalic, atraumatic. Mucosa is dry, pallor positive. NECK: No JVP, no carotid bruit. No lymphadenopathy. CARDIAC: S1, S2, no S3. Systolic murmur. LUNGS: Clear to auscultation. ABDOMEN: Soft. Abdominal discomfort all over. Bowel sounds active. No rigidity , guarding or CVA tenderness. EXTREMITIES: Upper extremity edema. No lower extremity edema. No clubbing or cyanosis. NEUROLOGIC: Awake, alert with confusion present. LYMPHATIC: No palpable lymph nodes SKIN: Not dry. Intact. MUSCULOSKELETAL: No joint swelling. LAB REVIEW: 01/04/17 04:06 01/04/17 04:06 01/04/17 04:06: WBC 30.20 H, RBC 3.66 L, Hgb 11.4 L D, Hct 32.3 L D, MCV 88.3, MCH 31.1 H, MCHC 35.3, RDW Coeff of Dinah 15.4 H, Plt Count 158, Immature Gran % ( Auto) 3.9, Neut % (Auto) 80.9, Lymph % (Auto) 8.5 L, [place] % (Auto) 6.2, Eos % ( Auto) 0.2, Baso % (Auto) 0.3, Immature Gran # (Auto) 1.2 H, Neut # 24.4 H, Lymph # 2.6, [place] # 1.9, Eos # 0.1, Baso # 0.1, Sodium 132 L, Potassium 3.9, Chloride 112 H, Carbon Dioxide 12 L, Anion Gap 11.9, BUN 95 H*, Creatinine 2.72 H, Estimated GFR (MDRD) 17.00, BUN/Creatinine Ratio 34.92, Glucose 283 H, Calcium 7.9 L, Total Bilirubin 1.69 H, AST 38 H, ALT 26, Alkaline Phosphatase 188 H, Total Protein 3.9 L, Albumin 1.4 L, Globulin 2.5, Albumin/Globulin Ratio 0.56 01/03/17 15:45: Blood Type A POSITIVE, Antibody Screen Negative, Crossmatch (AHG ) See Detail 01/03/17 15:30: PT 20.7 H, INR 2.01, Sodium 129 L, Potassium 3.7, Chloride 110 H , Carbon Dioxide 11 L, Anion Gap 11.7, BUN 90 H*, Creatinine 2.42 H, Estimated GFR (MDRD) 20.00, BUN/Creatinine Ratio 37.19, Glucose 288 H D, Calcium 7.7 L, Total Bilirubin 0.81, AST 24, ALT 21, Alkaline Phosphatase 178 H D, Total Protein 3.7 L, Albumin 1.3 L, Globulin 2.4, Albumin/Globulin Ratio 0.54 01/03/17 14:30: Urine Color Dark, Urine Clarity Slightly, Urine pH 5.5, Ur Specific [place] 1.020, Urine Protein 1+, Urine Glucose (UA) Trace, Urine Ketones Trace, Urine Blood 2+, Urine Nitrite Negative, Urine Bilirubin 1+, Urine Urobilinogen 0.2, Ur Leukocyte Esterase 1+, Urine Microscopic RBC 5-10, Urine Microscopic WBC 5-10, Ur Squamous Epith Cells 0-2, Ur Renal Epithelial Cell 0-2, Amorphous Sediment Trace, Urine Bacteria Trace 01/03/17 12:15: Hgb 7.7 L, Hct 22.4 L ASSESSMENT: 1. Hypotensive shock secondary to lower GI bleed status post 3 units of blood transfusion. 2. Lower GI bleed. 3. Elevated white count secondary to spontaneous bacterial peritonitis versus colitis. 4. Acute on chronic renal failure secondary to dehydration vs upper GI bleed. 5. Hepatic encephalopathy, more awake and alert. 6. Colitis - questionable diverticulitis per CT scan. 7. UTI organism negative no growth. 8. 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 9. Coronary artery disease. 10. CHF. 11. Osteoarthritis. 12. DJD spine 13. Depression PLAN: 1. Type and screen; hold 3 units. 2. Continue Azactam. 3. Continue IV fluids 50 mL/hr, will give 250 mL bolus. 4. Poor prognosis discussed with the patient's POA, who verbalized understanding. Plan and coordination of the patient's care discussed in the presence of Rn Clinician and nurse. PROGNOSIS: Poor. SCRIBED BY: VAHID TEAGUE, Cloud Engagement Partner scribed while in presence of service performed by Dr. ANTOENTTE TOMPKINS on 01/04/17 ([id number])
[2017-01-04 13:54] LABS: HEMATOCRIT 32.5 % (37.0-47.0); HEMOGLOBIN 11.4 g/dl (12.0-16.0)
[2017-01-04] MEDS: ARTIFICIAL TEARS OPTH SOL OP SCH (20:52)
[2017-01-04] MEDS ORDERED: CIPRO IV SCH (21:00)
[2017-01-04] MEDS ORDERED: D5W IV SCH (21:00)
[2017-01-05] MEDS: HUMULIN R SUBCUT PRN (02:45)
[2017-01-05] MEDS: PROTONIX IV 80 MG in SODIUM CHLORIDE 100 ML IV SCH ×2 (05:12→15:51)
[2017-01-05] MEDS: CARAFATE PO SCH (05:45)
[2017-01-05 05:50] LABS: BASOPHILS # (AUTO) 0.1 K/uL (0-0.2); BASOPHILS % (AUTO) 0.2 % (0.0-3.0); EOSINOPHILS # (AUTO) 0.3 K/ul (0.0-0.7); EOSINOPHILS % (AUTO) 1.1 % (0.0-7.0); HEMATOCRIT 27.7 % (37.0-47.0); HEMOGLOBIN 9.8 g/dl (12.0-16.0); IMMATURE GRANULOCYTE % (AUTO) 4.3 % (0.0-5.0); LYMPHOCYTES # (AUTO) 1.9 K/uL (0.60-3.4); LYMPHOCYTES % (AUTO) 7.5 (10.0-50.0); MEAN CORPUSCULAR HEMOGLOBIN 31.6 pg (27.0-31.0); MEAN CORPUSCULAR HGB CONC 35.4 (31.8-35.4); MEAN CORPUSCULAR VOLUME 89.4 fl (81.0-99.0); MONOCYTES # (AUTO) 1.3 K/uL (0.4-2.0); NEUTROPHILS # (AUTO) 20.8 K/ul (2.0-6.9); NEUTROPHILS % (AUTO) 81.9; PLATELET COUNT 124 10^3/uL (140-440); WHITE BLOOD COUNT 25.38 K/ul (4.6-10.2)
[2017-01-05] MEDS: MORPHINE 2 MG/ML SYRINGE IVP PRN (08:16)
[2017-01-05] MEDS ORDERED: D5W IV SCH (09:00)
[2017-01-05] MEDS ORDERED: CIPRO IV SCH (09:00)
[2017-01-05] MEDS: ATIVAN IVP PRN (09:32)
--- NOTE | 2017-01-05 09:32 | PN ---
DATE OF SERVICE: 12/30/16 SUBJECTIVE: The patient was admitted with the hepatic encephalopathy and colitis and enteritis. The patient is more awake and alert but the patient has been having sinus tachycardia since morning but not in any respiratory distress. Saturation is at 98% on 2 liters. REVIEW OF SYSTEMS: CONSTITUTIONAL: No fever, no chills. HEENT: Normal. ENDOCRINE: No weight gain, no weight loss. CVS: No angina symptoms. No CHF symptoms. No palpitations. No atypical chest pain for CAD. No shortness of breath. No PND, no orthopnea. RESPIRATORY: No cough, no hemoptysis. GI: No nausea, no vomiting. No abdominal pain. : No hematuria. No polyuria. MUSCULOSKELETAL:. No joint swelling. PSYCHIATRIC: Not anxious. No depression. No suicidal thoughts. No homicidal thoughts. SKIN: Intact. No rash. PHYSICAL EXAMINATION: V/S: Blood pressure 188/77, respiratory 22, heart rate 130 sinus to the irregular, temperature 97.5. HEENT: Normocephalic, atraumatic. Mucosa dry. NECK: Supple. No JVD, no carotid bruit. No lymphadenopathy. LUNGS: Decreased with some basilar crackles. No rales or rhonchi. HEART: S1, S2 irregular and sometime regular. Varied rhythm. No S3. Pansystolic murmur, gallop or regurgitation. ABDOMEN: Soft, Discomfort all over. Bowel sounds active. No rigidity. No rebound or guarding. No CVA tenderness. EXTREMITIES: No clubbing, cyanosis or pedal edema. MUSCULOSKELETAL: No joint swelling. NEUROLOGIC: Awake, alert, oriented times three. No focal deficit. LYMPHATIC: No lymph nodes palpable. SKIN: Intact. LABS: WBC 17.53, hgb 12.4, hct 35.8, plt count 123, sodium 138, potassium 3.3, chloride 109, bicarb 21, BUN 26, creatinine 1.02 and Ammonia 43. Total bilirubin 2.16. ASSESSMENT: 1. Sinus tachycardia rule out thyroid problems versus aspiration pneumonia 2. Hepatic encephalopathy the patient is more awake and alert 3. Pansystolic murmur from the Mitral regurgitation 4. History of dilated cardiomyopathy with CHF 5. Alzheimer's Dementia PLAN: 1. TSH 2. CT of the Chest 3. Continue Flagyl and Zosyn 4. Daily I&O's Will follow the patient in daily rounds. TIME SPENT: More than 30 minutes MTDD
[2017-01-05] MEDS: CALMOSEPTINE OINTMENT TP SCH ×4 (09:50→21:24)
[2017-01-05] MEDS: SODIUM CHLORIDE 1,000 ML IV SCH (11:29)
[2017-01-05 17:49] VITALS: BP 90/60; TEMP 97.6
[2017-01-05] MEDS: ARTIFICIAL TEARS OPTH SOL OP SCH (22:54)
[2017-01-06] MEDS: ZOFRAN 4 MG/2 ML IVP PRN ×2 (00:38→06:38)
[2017-01-06] MEDS: MORPHINE 2 MG/ML SYRINGE IVP PRN ×4 (00:39→08:31)
[2017-01-06] MEDS: SODIUM CHLORIDE 1,000 ML IV SCH (06:23)
[2017-01-06] MEDS: CALMOSEPTINE OINTMENT TP SCH ×2 (08:31→12:27)
--- NOTE | 2017-01-06 10:15 | PCM.PROG ---
Attending Provider: ATTENDING PROVIDER: Dr. ANTONETTE TOMPKINS DATE OF SERVICE: 01/05/17 SUBJECTIVE: This 71 year old WHITE/ F was hospitalized 12/27/16. The patient's daughter is in the room. I discussed the case with the daughter in detail and she is agreeable for comfort care. POA is Wendy Eugene and is aware of the poor prognosis and wants comfort measures. The patient is moaning with pain and is not oriented at all. Hemoglobin is 11 after 3 units, now has dropped to 9.8. REVIEW OF SYSTEMS: CONSTITUTIONAL: No fever, no chills. ENDOCRINE: No weight loss or weight gain. HEENT: No sinus drainage, no sore throat. CVS: No angina symptoms. No CHF symptoms. No palpitations. No atypical chest pain for CAD. No shortness of breath. RESPIRATORY: No cough, no hemoptysis. GI: No melena. No abdominal pain. No nausea, no vomiting. : No hematuria. No polyuria. SKIN: No rash. No wounds. MUSCULOSKELETAL: No pain. PUBLIC HEALTH REPRESENTATIVE: No blackout, no dizziness. No headache. No double vision. PSYCHIATRIC: Not anxious; no depression. No suicidal thoughts. No homicidal thoughts. PHYSICAL EXAMINATION: GENERAL: Lying in bed in no distress. VITAL SIGNS: Temperature 97.3 F, Pulse 69, Respiratory Rate 17, BP 104/48, Pulse Ox 97% HEENT: Normocephalic, atraumatic. Mucosa is dry, pallor positive. NECK: No JVP, no carotid bruit. No lymphadenopathy. CARDIAC: S1, S2, no S3. Systolic murmur. LUNGS: Decreased entry with basilar crackles. ABDOMEN: Abdominal tenderness. Sluggish Bowel sounds. No rigidity, guarding or CVA tenderness. EXTREMITIES: Edema upper extremities. Lower extremity - no edema. No clubbing, cyanosis. NEUROLOGIC: Awake, alert and oriented x3. LYMPHATIC: No palpable lymph nodes SKIN: Not dry. Intact. MUSCULOSKELETAL: No joint swelling. LAB REVIEW: 01/05/17 05:40 01/04/17 04:06 01/05/17 05:40: WBC 25.38 H, RBC 3.10 L, Hgb 9.8 L, Hct 27.7 L, MCV 89.4, MCH 31.6 H, MCHC 35.4, RDW Coeff of Dinah 18.6 H, Plt Count 124 L, Immature Gran % ( Auto) 4.3, Neut % (Auto) 81.9, Lymph % (Auto) 7.5 L, [place] % (Auto) 5.0, Eos % ( Auto) 1.1, Baso % (Auto) 0.2, Immature Gran # (Auto) 1.1 H, Neut # 20.8 H, Lymph # 1.9, [place] # 1.3, Eos # 0.3, Baso # 0.1 01/04/17 13:45: Hgb 11.4 L, Hct 32.5 L ASSESSMENT: 1. Hypotensive shock secondary to lower GI bleed status post 3 units of blood transfusion. 2. Lower GI bleed bleeding stable now 3. Elevated white count secondary to spontaneous bacterial peritonitis versus colitis. 4. Acute on chronic renal failure secondary to dehydration vs upper GI bleed. 5. Hepatic encephalopathy, more awake and alert. 6. Colitis - questionable diverticulitis per CT scan. 7. UTI organism negative no growth. 8. 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 9. Coronary artery disease. 10. CHF. 11. Osteoarthritis. 12. DJD spine 13. Depression PLAN: 1. Morphine 2 mg q2 to 4hr 2. Ativan 1 mg q.4hr 3. Continue IV fluids and Cipro 400 b.i.d. Plan and coordination of the patient's care discussed in the presence of Furniture Finisher and nurse SCRIBED BY: VAHID TEAGUE, Cloth Designer scribed while in presence of service performed by Dr. ANTONETTE TOMPKINS on 01/05/17 ([id number])
--- NOTE | 2017-01-06 10:19 | PCM.PROG ---
Attending Provider: ATTENDING PROVIDER: Dr. ANTONETTE TOMPKINS DATE OF SERVICE: 01/06/17 SUBJECTIVE: This 71 year old WHITE/ F was hospitalized 12/27/16. The patient's daughter is in the room and states the patient has been more comfortable; however, is still moaning and shouting in pain. The patient has been getting Morphine 2 mg every 2 to 4 hours. No labs done today per family request. REVIEW OF SYSTEMS: CONSTITUTIONAL: No fever, no chills. ENDOCRINE: No weight loss or weight gain. HEENT: No sinus drainage, no sore throat. CVS: No angina symptoms. No CHF symptoms. No palpitations. No atypical chest pain for CAD. No shortness of breath. RESPIRATORY: No cough, no hemoptysis. GI: No melena. No abdominal pain. No nausea, no vomiting. : No hematuria. No polyuria. SKIN: No rash. No wounds. MUSCULOSKELETAL: Moaning and shouting in pain when toughed anywhere. PRESS OPERATOR: No blackout, no dizziness. No headache. No double vision. PSYCHIATRIC: Not anxious; no depression. No suicidal thoughts. No homicidal thoughts. PHYSICAL EXAMINATION: GENERAL: Lying in bed moaning in pain. VITAL SIGNS: Temperature 97.6 F, Pulse 70, Respiratory Rate 10, BP 90/60, Pulse Ox 90% HEENT: Normocephalic, atraumatic. Mucosa is dry, pallor positive. NECK: No JVP, no carotid bruit. No lymphadenopathy. CARDIAC: S1, S2. Systolic murmur positive. LUNGS: Decreased basilar crackles. ABDOMEN: Abdomen painful all over. Bowel sounds sluggish. No rigidity, guarding or CVA tenderness. EXTREMITIES: Upper extremity edema and puffiness. No lower extremity edema. NEUROLOGIC: Awake, alert; confused. LYMPHATIC: No palpable lymph nodes SKIN: Not dry. Intact. MUSCULOSKELETAL: No joint swelling. LAB REVIEW: 01/05/17 05:40 01/04/17 04:06 ASSESSMENT: 1. Hypotensive shock secondary to lower GI bleed status post 3 units of blood transfusion. hemoglobion stable now 2. Lower GI bleed bleeding stable now 3. Elevated white count secondary to spontaneous bacterial peritonitis versus colitis. 4. Acute on chronic renal failure secondary to dehydration vs upper GI bleed. 5. Hepatic encephalopathy, more awake and alert. 6. Colitis - questionable diverticulitis per CT scan. 7. UTI organism negative no growth. 8. 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 9. Coronary artery disease. 10. CHF. 11. Osteoarthritis. 12. DJD spine 13. Depression PLAN: Plan and coordination of the patient's care discussed in the presence of Edge Inker Heels and nurse. Prognosis is poor. SCRIBED BY: VAHID TEAGUE Marine Engine Machinist scribed while in presence of service performed by Dr. ANTONETTE TOMPKINS on 01/06/17 ([id number])
[2017-01-06] MEDS: ATIVAN IVP PRN (10:40)
--- NOTE | 2017-01-06 14:38 | HP ---
DATE OF SERVICE: 12/27/16 CHIEF COMPLAINT/HISTORY OF PRESENT ILLNESS: This is a 71-year-old female with a history of hepatic and alcoholic hepatitis and cirrhosis with hepatitis C cirrhosis with multiple hospitalizations. She has been feeling weak and not herself and this morning the patient's nurse had a very difficult time waking her up. Blood sugar was 124. As the patient was unresponsive, the family was called, power of corporate attorney and suggested to take the patient to the Emergency room. The patient was brought to the Emergency Room at [place]. Dr. Francisco saw the patient. The patient is unresponsive, responds only to painful stimulus and goes back to sleep. CT of the head did not show any stroke. CT chest showed no acute findings. CT chest did show some inflammation and infection, ground glass nodularity consistent with inflammation and infection. CT of the abdomen and pelvis showed moderate diverticulosis of the distal colon. It would be difficult to exclude mild diverticular inflammation and in the process of evaluation ammonia was done, which was significantly elevated to 131. Total bilirubin was 1.30, AST 54, alkaline phosphatase 411. At that time, the patient was admitted to SCU secondary to hepatic encephalopathy. REVIEW OF SYSTEMS: CONSTITUTIONAL: Weakness, tiredness, unable to wake the patient. No fever, no chills. HEENT: Normal. ENDOCRINE: No weight gain; no weight loss. CVS: Shortness of breath with exertion when she is awake - she is a halfway resident. No chest pain. No PND, no orthopnea. No PND, no orthopnea. RESPIRATORY: No cough, no congestion. No hemoptysis. GI: No nausea, no vomiting. No abdominal pain. No melena. : No hematuria. No polyuria. MUSCULOSKELETAL: No joint swelling. PSYCHIATRIC: Not anxious. No depression. No suicidal thoughts. No homicidal thoughts. SKIN: Intact, no open lesions. PAST MEDICAL HISTORY: 1. Hypertension 2. Dyslipidemia 3. History of DVT 4. History of CVA 5. History of Alzheimer's dementia 6. Peripheral neuropathy 7. History of pneumonia 8. GERD 9. Osteoarthritis 10. Rheumatoid arthritis 11. Diabetes 12. History of nicotine use 13. History of cirrhosis mostly from alcohol induced cirrhosis 14. CAD 15. CHF PAST SURGICAL HISTORY: 1. Appendectomy 2. Cholecystectomy 3. Cataract surgery PERSONAL HISTORY: The patient lives at the halfway, partially dependent on the ADLs, does smoke and drink alcohol. FAMILY HISTORY: Significant for high blood pressure. MEDICATIONS: 1. Isosorbide 2. Lasix 3. Namenda 4. Artificial Tears 5. Ascorbic Acid 6. Coreg 7. Tylenol 8. Insulin 9. Levemir 10. Sertraline 11. Pregabalin 12. Ferrous Sulfate 13. Hydrocodone 14. Victoza 15. Daily vitamin 16. Nexium 17. Mylanta 18. Novolin N ALLERGIES: ADHESIVES, ASPIRIN, CEPHALOSPORIN PHYSICAL EXAMINATION: V/S: BP 158/73, respiratory rate 20, heart rate 66, temperature 99.6. HEENT: Atraumatic, normocephalic. No scleral icterus. Pallor positive. Mucosa dry. NECK: Supple. No JVD, no bruit. No lymphadenopathy. No thyromegaly. HEART: S1, S2 normal. No murmur. No cyanosis or clubbing. No ascites. LUNGS: Decreased breath sounds. Clear to auscultation. No rales or rhonchi. ABDOMEN: Soft, nontender. Bowel sounds are active. No CVA tenderness. No rigidity or guarding. EXTREMITIES: No cyanosis, clubbing or pedal edema. MUSCULOSKELETAL: Normal joints, no swelling. NEUROLOGIC: The patient responds to the painful stimuli and goes back to sleep. Motor could not be assessed. SKIN: Intact; no open lesions. LYMPHATIC: No lymph nodes palpable. LABS: Sodium 144, potassium 4.8, chloride 112, bicarb 23, BUN 13, creatinine 1.23. Total bilirubin 1.30, AST 54, ammonia 131. First set of cardiac enzymes are negative. White count 8.36, hemoglobin 12.3, hematocrit 36.0, platelet count 98. ABG pH 7.42, pc02 28.9, p02 93. ASSESSMENT: 1. CHANGE IN MENTAL STATUS SECONDARY TO HEPATIC ENCEPHALOPATHY SECONDARY TO COLITIS VERSUS DIVERTICULOSIS/DIVERTICULITIS. 2. UPPER RESPIRATORY INFECTION 3. HISTORY OF ALCOHOL INDUCED HEPATIC CIRRHOSIS 4. CAD 5. CHF 6. HYPERTENSION 7. DYSLIPIDEMIA 8. RHEUMATOID ARTHRITIS PLAN: 1. Admit the patient to SCU 2. CBC, CMP today and daily 3. Cardiac enzymes and troponin 4. NPO 5. Keep head end of the bed elevated 6. Continue home medications 7. IV fluids, 30 mL/hr 8. Spironolactone 9. Zosyn IV q.6hr 10. Flagyl IV q.8hr 11. Lactulose 200 gm q.12hr 12. Daily I & O's 13. Will follow with the patient in daily rounds TIME SPENT: More than 70 minutes today MTDD
--- NOTE | 2017-01-17 12:03 | DS ---
DATE OF SERVICE: 01/06/17 FINAL DIAGNOSIS: 1. ACUTE LOWER GI BLEED, STATUS POST BLOOD TRANSFUSION 2. ACUTE RENAL FAILURE 3. FLUID OVERLOAD 4. HYPOTENSION SECONDARY TO THE GI BLEED 5. ELEVATED WHITE COUNT SECONDARY TO SPONTANEOUS BACTERIAL PERITONITIS AND COLITIS 6. HEPATIC ENCEPHALOPATHY 7. COLITIS 8. END STAGE LIVER DISEASE FROM THE ALCOHOL USE 9. CORONARY ARTERY DISEASE 10. CONGESTIVE HEART FAILURE 11. OSTEOARTHRITIS. 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 DEPRESSION PLAN: 1. Discharge the patient to the half-way with [facility]. 2. Orders to be sent by the [facility]. HOME MEDICATIONS PER [facility] MEDICATIONS. DIET INSTRUCTIONS: Soft and liquid diet. ACTIVITY: Complete bed rest. DISEASE SPECIFIC EDUCATION: Very high risk and critical patient status secondary to the continued GI bleed and change in mental status and the renal failure. The patient's daughter and Power of [employer]ag [employer] both are aware of that. HOSPITAL COURSE: Gina Baltazar, who is a 71 year old female, admitted to the hospital with a change in mental status and abdominal pain. CT scan showed the colitis, questionable diverticulitis because of the shadow they could not see it clearly. She was started on antibiotics, Zosyn and Vancomycin. Flagyl was added. Her ammonia level was initially 131 with Lactulose it dropped to 40 and 43. The patient was given Xifaxan 550 mg p.o. twice daily. The patient was more awake and alert by December 31, but after that again the patient started having abdominal pain and slowly the hemoglobin started dropping. On the the hemoglobin was 9.8 and we repeated the hemoglobin again and it was 7.7 and the nurse noticed the lower GI bleed. Type and crossmatched 3 units and transfused the 3 units. Hemoglobin came up to 11.4 and then again dropped to 9.8. Meanwhile, her BUN and creatinine had increased from 33 to 53 then 82, 90 and 95. Urine output became scanty. More confused and just moaning with the pain and distress. I talked to the family, [employer] and the patient's daughter. Both agreed for the comfort measures only. [facility] was called and the patient was discharged back to the half-way. Time spent on the patient was more than 55 minutes. [facility]
== END 2017-01-06 15:43 | disposition hospice, home (50) | DRG 377 ==
LOC: ED 07:25 → SCU 09:31
PROVIDERS: ADMIT Emergency Medicine; ATTEND Emergency Medicine
PROC: 30233N1 Transfusion of Nonautologous Red Blood Cells into Peripheral Vein, Percutaneous Approach (ICD-10-PCS; principal; 2017-01-03)
PROC: 30233N1 Transfusion of Nonautologous Red Blood Cells into Peripheral Vein, Percutaneous Approach (ICD-10-PCS; 2017-01-03)
PROC: 30233N1 Transfusion of Nonautologous Red Blood Cells into Peripheral Vein, Percutaneous Approach (ICD-10-PCS; 2017-01-03)
DX: K92.2 Gastrointestinal hemorrhage, unspecified (principal); N18.6 End stage renal disease; R57.1 Hypovolemic shock; N17.9 Acute kidney failure, unspecified; K70.30 Alcoholic cirrhosis of liver without ascites; E87.70 Fluid overload, unspecified; I95.9 Hypotension, unspecified; D72.829 Elevated white blood cell count, unspecified; K52.9 Noninfective gastroenteritis and colitis, unspecified; N39.0 Urinary tract infection, site not specified; R18.8 Other ascites; K72.90 Hepatic failure, unspecified without coma; R41.82 Altered mental status, unspecified; R10.9 Unspecified abdominal pain; I10 Essential (primary) hypertension; E11.9 Type 2 diabetes mellitus without complications; I25.10 Atherosclerotic heart disease of native coronary artery without angina pectoris; I50.9 Heart failure, unspecified; M19.90 Unspecified osteoarthritis, unspecified site; M47.9 Spondylosis, unspecified; F32.9 Major depressive disorder, single episode, unspecified; R00.0 Tachycardia, unspecified; I34.0 Nonrheumatic mitral (valve) insufficiency; G30.9 Alzheimer's disease, unspecified; F02.80 Dementia in other diseases classified elsewhere, unspecified severity, without behavioral disturbance, psychotic disturbance, mood disturbance, and anxiety; E87.6 Hypokalemia; R05 Cough; Z79.4 Long term (current) use of insulin; Z79.899 Other long term (current) drug therapy
CPT/HCPCS: 36415; 36430; 80053; 81001; 82140; 82150; 82272; 82550; 82803; 82962; 83605; 83690; 84145; 84439; 84443; 84481; 84484; 85014; 85018; 85025; 85610; 86850; 86900; 86922; 87040; 87070; 87081; 87086; 93005; 93010; 96365; 97802; 99284

== ENCOUNTER 2017-01-06 15:28 | Outpatient (CLI) | payer OTHER | END 2017-01-06 15:29 | LOC: AMBL 15:28 | PROVIDERS: ATTEND Internal Medicine | DX: R41.82 Altered mental status, unspecified (principal); K74.60 Unspecified cirrhosis of liver; K72.90 Hepatic failure, unspecified without coma; I50.9 Heart failure, unspecified; I25.10 Atherosclerotic heart disease of native coronary artery without angina pectoris; Z99.81 Dependence on supplemental oxygen ==